=== PATIENT | male | born 1945 | race Caucasian/White ===

== ENCOUNTER 2020-01-29 00:49 | Inpatient (IN) ==
[2020-01-29] MEDS ORDERED: ONDANSETRON 4 MG/2 ML VIAL IV ONE (01:04)
[2020-01-29] MEDS ORDERED: DILTIAZEM 25 MG/5 ML VIAL IV ONE (01:04)
[2020-01-29] MEDS ORDERED: DILTIAZEM 125 MG in DEXTROSE 5% IN WATER 100 ML IV SCH (01:15)
[2020-01-29 01:57] LABS: Basophils # (Auto) 0.06 K/mcL (0.00-0.30); Basophils % (Auto) 0.5 % (0.0-2.0); Eosinophils # (Auto) 0.09 K/mcL (0.00-0.70); Eosinophils % (Auto) 0.8 % (0.0-7.0); Granulocytes % (Auto) 72.5 % (38.0-78.0); Hematocrit 46.8 % (40.1-51.0); Hemoglobin 15.3 g/dL (13.7-17.5); Lymphocytes # (Auto) 2.32 K/mcL (1.50-4.80); Lymphocytes % (Auto) 20.3 % (15.5-49.0); Mean Cell Volume 85.2 fL (80.0-100.0); Mean Corpuscular HGB Conc 32.7 g/dL (31.0-36.0); Mean Platelet Volume 10.4 fL (7.4-10.4); Monocytes # (Auto) 0.67 K/mcL (0.10-0.90); Monocytes % (Auto) 5.9 % (1.0-12.0); Platelet Count 307 K/mcL (140-440); RBC 5.49 M/mcL (4.63-6.08); Red Cell Distribution Width 13.1 % (11.5-14.5); WBC 11.5 K/mcL (4.50-11.00)
[2020-01-29] MEDS ORDERED: cefTRIAXone 1 GM VIAL IV ONE (02:07)
[2020-01-29] MEDS ORDERED: AZITHROMYCIN 500 MG in DEXTROSE 5% IN WATER 250 ML IV ONE (02:07)
[2020-01-29 02:17] LABS: ALT/SGPT 8 U/l (0-40); AST/SGOT 16 U/l (0-37); Albumin/Globulin Ratio 1.3 (1.0-2.3); Alkaline Phosphatase 111 U/L (39-117); Bilirubin,Total 1.8 mg/dL (0.0-1.0); Blood Urea Nitrogen 15 mg/dl (8-23); Calcium 8.8 mg/dl (8.6-10.4); Carbon Dioxide 22 mmol/L (22-30); Chloride 99 mmol/L (96-108); Globulin 3.2 gm/dL (2.2-3.7); Glomerular Filtration Rate 54; Glucose 160 mg/dL (70-105)
[2020-01-29 02:18] LABS: Prothrombin Time 14.1 sec (11.9-14.5)
[2020-01-29] MEDS: HYDROmorphone 0.5 MG/0.5 ML SYRINGE IV PRN ×2 (03:15→07:26)
--- NOTE | 2020-01-29 06:29 | Emergency Department Note ---
SOB HPI - General Chief Complaint: Shortness of Breath/Dyspnea Stated Complaint: SOB, abd pain, chest pain Time Seen by Provider: 01/29/20 01:00 Source: patient Mode of arrival: wheelchair Limitations: no limitations - History of Present Illness S patient has not felt well for a couple of days. He has some chest and abdominal discomfort and was not aware that his heart rate was fast. He does have a history of atrial fib. He currently is in atrial fib RVR with a rate of about 140. Said no nausea vomiting no diarrhea. No significant cough. - Related Data Home Medications Medication Instructions Recorded Confirmed Folic Acid 1 mg PO ONCE 02/05/16 02/05/16 Metoprolol Succinate [Toprol Xl] 25 mg PO QDAY 02/05/16 02/05/16 Omeprazole [PriLOSEC] 20 mg PO QDAY 02/05/16 02/05/16 Sennosides/Docusate Sodium [Senna 1 tab PO QDAY 02/05/16 02/05/16 Plus Tablet] Simvastatin [Zocor] 40 mg PO HS 02/05/16 02/05/16 Tamsulosin [Flomax] 0.4 mg PO QDAY 02/05/16 02/05/16 Trospium Chloride [Trospium 40 mg PO QDAY 02/05/16 02/05/16 Chloride ER] Warfarin [Coumadin] 2.5 mg PO WEEKLY 02/05/16 02/07/16 Warfarin [Coumadin] 5 mg PO WEEKLY 02/05/16 02/07/16 morphine SULFATE [Morphine Sulfate 120 mg PO BID 02/05/16 02/07/16 ER] oxyCODONE [OxyCONTIN] 10 mg PO PRN PRN 02/05/16 02/07/16 Allergies Allergy/AdvReac Type Severity Reaction Status Date / Time No Known Drug Allergies Allergy Unverified 01/29/20 00:52 Review of Systems All systems ED: reviewed and negative except as stated. Past Medical History - Past Medical History Medical history: Reports: atrial fibrillation, GERD, hyperlipidemia - Social History smoking status: Current every day smoker Physical Exam Limitations: no limitations General appearance: alert Head: atraumatic Eye: Present: normal appearance ENT: Present: normal exam Neck: Present: normal inspection Chest: Present: normal inspection Respiratory: Present: normal lung sounds bilaterally Cardiovascular: Present: tachycardia, irregular rhythm, normal heart sounds Abdominal: Present: soft. Absent: distention, tenderness Neurological: Present: alert Psychiatric: Present: normal affect Skin: Present: warm, dry Course Vital Signs Temperature 97.4 F 01/29/20 00:50 Pulse Rate 94 H 01/29/20 00:50 Respiratory Rate 28 H 01/29/20 00:50 Blood Pressure 146/107 01/29/20 00:50 Pulse Oximetry (%) 100 01/29/20 00:50 Temperature 97.4 F 01/29/20 00:50 Pulse Rate 61 01/29/20 05:48 Respiratory Rate 23 H 01/29/20 06:02 Blood Pressure 123/106 01/29/20 06:02 Pulse Oximetry (%) 97 01/29/20 06:02 Shortness of Breath/Dyspnea - [facility] Narrative Medical decision making narrative: Patient's checks x-ray shows a right lower lobe infiltrate. Lab work was not too remarkable. He was treated with diltiazem and was treated for pneumonia with Zithromax and Rocephin. Blood pressure came down under 100 and his diltiazem was stopped for a while was restarted with blood pressure came back up to 126 with a heart rate of 113. I did discuss case with Dr. Liriano and he will be admitted to the ICU. - Lab Data Lab results reviewed: Yes I reviewed the patient's lab results. Result diagrams: 01/29/20 01:05 01/29/20 01:05 Lab Results 01/29/20 01/29/20 01/29/20 Range/Units 01:05 01:05 01:05 WBC 11.5 H (4.50-11.00) K/mcL RBC 5.49 (4.63-6.08) M/mcL Hgb 15.3 (13.7-17.5) g/dL Hct 46.8 (40.1-51.0) % MCV 85.2 (80.0-100.0) fL MCH 27.9 (26.0-34.0) pg MCHC 32.7 (31.0-36.0) g/dL RDW 13.1 (11.5-14.5) % Plt Count 307 (140-440) K/mcL MPV 10.4 (7.4-10.4) fL Gran % 72.5 (38.0-78.0) % Lymph % (Auto) 20.3 (15.5-49.0) % [place] % (Auto) 5.9 (1.0-12.0) % Eos % (Auto) 0.8 (0.0-7.0) % Baso % (Auto) 0.5 (0.0-2.0) % Gran # 8.31 H (1.80-8.00) K/mcL Lymph # (Auto) 2.32 (1.50-4.80) K/mcL [place] # (Auto) 0.67 (0.10-0.90) K/mcL Eos # (Auto) 0.09 (0.00-0.70) K/mcL Baso # (Auto) 0.06 (0.00-0.30) K/mcL PT (11.9-14.5) sec INR (0.9-1.1) VBG Lactic Acid (0.5-2.0) mmol/L Sodium 138 (133-145) mmol/L Potassium 3.6 (3.3-5.1) mmol/L Chloride 99 (96-108) mmol/L Carbon Dioxide 22 (22-30) mmol/L Anion Gap 17.0 H (8-16) BUN 15 (8-23) mg/dl Creatinine 1.3 H (0.7-1.2) mg/dl GFR Calculation 54 Glucose 160 H (70-105) mg/dL Calcium 8.8 (8.6-10.4) mg/dl Total Bilirubin 1.8 H (0.0-1.0) mg/dL AST 16 (0-37) U/l ALT 8 (0-40) U/l Alkaline Phosphatase 111 (39-117) U/L Troponin T < 0.01 (0-0.03) ng/ml NT-Pro-B Natriuret Pep 6639.0 H (0-125) pg/ml Total Protein 7.2 (5.9-8.4) gm/dL Albumin 4.0 (3.2-5.2) gm/dL Globulin 3.2 (2.2-3.7) gm/dL Albumin/Globulin Ratio 1.3 (1.0-2.3) Lipase 10 (7-60) U/L 01/29/20 01/29/20 Range/Units 01:05 01:45 WBC (4.50-11.00) K/mcL RBC (4.63-6.08) M/mcL Hgb (13.7-17.5) g/dL Hct (40.1-51.0) % MCV (80.0-100.0) fL MCH (26.0-34.0) pg MCHC (31.0-36.0) g/dL RDW (11.5-14.5) % Plt Count (140-440) K/mcL MPV (7.4-10.4) fL Gran % (38.0-78.0) % Lymph % (Auto) (15.5-49.0) % [place] % (Auto) (1.0-12.0) % Eos % (Auto) (0.0-7.0) % Baso % (Auto) (0.0-2.0) % Gran # (1.80-8.00) K/mcL Lymph # (Auto) (1.50-4.80) K/mcL [place] # (Auto) (0.10-0.90) K/mcL Eos # (Auto) (0.00-0.70) K/mcL Baso # (Auto) (0.00-0.30) K/mcL PT 14.1 (11.9-14.5) sec INR 1.0 (0.9-1.1) VBG Lactic Acid 2.8 H (0.5-2.0) mmol/L Sodium (133-145) mmol/L Potassium (3.3-5.1) mmol/L Chloride (96-108) mmol/L Carbon Dioxide (22-30) mmol/L Anion Gap (8-16) BUN (8-23) mg/dl Creatinine (0.7-1.2) mg/dl GFR Calculation Glucose (70-105) mg/dL Calcium (8.6-10.4) mg/dl Total Bilirubin (0.0-1.0) mg/dL AST (0-37) U/l ALT (0-40) U/l Alkaline Phosphatase (39-117) U/L Troponin T (0-0.03) ng/ml NT-Pro-B Natriuret Pep (0-125) pg/ml Total Protein (5.9-8.4) gm/dL Albumin (3.2-5.2) gm/dL Globulin (2.2-3.7) gm/dL Albumin/Globulin Ratio (1.0-2.3) Lipase (7-60) U/L - Radiology Data Radiology results reviewed: Yes I reviewed the patient's radiology results. Disposition Pt seen by DIRECTOR OF CONTENT MARKETING/PA only: No Clinical Impression: Atrial fibrillation with RVR, Community acquired pneumonia, Congestive heart failure Disposition: Xfer As Inpt ([facility]) Condition: Good Time of Disposition: 06:31
--- NOTE | 2020-01-29 06:57 | Internal Med History&Physical ---
Medical - H&P: HPI Patient information: Note initiated : 01/29/20 at 6:54 am Service Date, if different from initiated Date: [] Patient: Roman Vega 74 y/o M admitted on for SOB, abd pain, chest pain. Chief Complaint: [] Chief complaint: Shortness of breath, Weakness and not feeling well History of present illness: Mr. Vega is a 74 year old M with a known history of atrial fibrillation on anticoagulation, chronic pain who presents to the ER with 5-day onset of worsening shortness of breath/effort intolerance and poor functionality. He has associated abdominal discomfort. Patient endorses to sick contacts being his friend who lives in the same property trailer. He however denies shaking chills, headache, photophobia. Endorses to clear productive sputum. Denies rash, arthralgia myalgia. Initial work-up in the ER was consistent with A. fib RVR and bilateral infi ltrates/right-sided effusion. Patient started on diltiazem drip with rate improving from over 150s to 120s. Patient was started on antibiotic coverage following blood cultures and hospital service was consulted At the time evaluation patient is alert but in moderate distress requiring 5 L oxygen. Rate currently on 120. Patient endorses to history as above. He however occasionally mentioned was not able to provide a detailed history. He stopped taking his prior medications for a long time. He appears fatigued and lethargic. COVID test pending. Review of systems A 10 point review system was performed and is negative except for ones discussed above Medical - H&P: PMH Medical history: Atrial fibrillation Anticoagulation on rivaroxaban Hyper lipidemia GERD Chronic pain BPH Cognitive dysfunction Social history: Lives in [place] with Active smoker over [id number] Drinks beer frequently Smoking status: Current every day smoker Medical - H&P: Meds Home Medications Medication Instructions Recorded Confirmed Type Atorvastatin [Lipitor] 80 mg PO HS 01/29/20 01/29/20 History Clopidogrel Bisulfate [Plavix] 75 mg PO DAILY 01/29/20 01/29/20 History Cyclobenzaprine [Flexeril] 10 mg PO TID PRN 01/29/20 01/29/20 History Lisinopril [Zestril] 2.5 mg PO DAILY 01/29/20 01/29/20 History Metoprolol Succinate [Toprol Xl] 100 mg PO DAILY 01/29/20 01/29/20 History Rivaroxaban [Xarelto] 20 mg PO HS 01/29/20 01/29/20 History Nitroglycerin [Nitrostat] 0.4 mg SL Q5M PRN MDD 3 01/30/20 01/30/20 History Omeprazole 20 mg PO ACB 01/30/20 01/30/20 History Tamsulosin HCl 0.4 mg PO DAILY 01/30/20 01/30/20 History Allergies Allergy/AdvReac Type Severity Reaction Status Date / Time No Known Drug Allergies Allergy Unverified 01/29/20 00:52 Medical - H&P: Exam - Constitutional Vitals: Temp Pulse Resp BP Pulse Ox 97.4 F 61 24 H 109/91 93 01/29/20 00:50 01/29/20 05:48 01/29/20 06:47 01/29/20 06:47 01/29/20 06:32 General appearance: obese Exam: Minimally confused Head normocephalic Oral cavity dry No ear nose discharge Neck lymphadenopathy Irregular rhythm Eye movement symmetrical Oxygen mask 5 L Diminished breath sounds with late inspiratory crackles bilateral posterior chest Abdomen soft nontender Lower extremity no cyanosis clubbing no joint swelling Skin no suspicious lesion Psych anxious Neuro nonfocal Medical - H&P: Reslt - Labs CBC & Chem 7: 01/30/20 04:00 01/30/20 04:00 Labs: Short CBC 01/29/20 Range/Units 01:05 WBC 11.5 H (4.50-11.00) K/mcL Hgb 15.3 (13.7-17.5) g/dL Hct 46.8 (40.1-51.0) % Plt Count 307 (140-440) K/mcL [facility] 01/29/20 01:05 Sodium 138 Potassium 3.6 Chloride 99 Carbon Dioxide 22 BUN 15 Creatinine 1.3 H Glucose 160 H Calcium 8.8 Cardiac Enzymes 01/29/20 Range/Units 01:05 Troponin T < 0.01 (0-0.03) ng/ml Liver Function 01/29/20 Range/Units 01:05 Total Bilirubin 1.8 H (0.0-1.0) mg/dL AST 16 (0-37) U/l ALT 8 (0-40) U/l Alkaline Phosphatase 111 (39-117) U/L Albumin 4.0 (3.2-5.2) gm/dL Medical - H&P: A/P (1) Atrial fibrillation with RVR Current visit: Yes Status: Acute * Atrial fibrillation with rapid ventricular rate-exacerbated by pneumonia/hypoxic respiratory failure. Continue rate control measures with CCB/digoxin. Await echocardiogram. * Right lower lobe pneumonia-broad antibiotic coverage. Check COVID 19. Sputum cultures. Pulmonary toilet and aspiration precaution * Acute hypoxic respiratory failure on 5 L oxygen. Check ABG/serial chest imaging. CT chest in 24 hours. If evidence of effusion consider thoracentesis * Mild cognitive dysfunction * History of hypertension lisinopril, exact home medication list is being obtained * History of BPH continue tamsulosin * Hyperlipidemia continue statin * AntiCoagulation on Coumadin * Chronic pain continue oxycodone/morphine home dose Plan * Inpatient ICU admission * Noninvasive ventilation if indicated * Aggressive rate control measures including CCB/digoxin IV load * Coumadin dosing based on INR * Broad antibiotic coverage * Pre-existing medical condition management as above
[2020-01-29] MEDS ORDERED: MAGNESIUM SULFATE 2 GM/50 ML BAG IV PRN (08:34)
[2020-01-29] MEDS ORDERED: POTASSIUM CHLORIDE 20 MEQ PACKET PO PRN (08:34)
[2020-01-29] MEDS ORDERED: hydrALAZINE 20 MG/ML VIAL IV PRN (08:34)
[2020-01-29] MEDS ORDERED: ACETAMINOPHEN 325 MG TABLET PO PRN (08:34)
[2020-01-29] MEDS ORDERED: METOPROLOL TARTRATE 5 MG/5 ML VIAL IV PRN (08:34)
[2020-01-29] MEDS ORDERED: ONDANSETRON 4 MG ODT TABLET SL PRN (08:34)
[2020-01-29] MEDS ORDERED: ONDANSETRON 4 MG/2 ML VIAL IV PRN (08:34)
[2020-01-29] MEDS ORDERED: POLYETHYLENE GLYCOL 3350 17 GM PACKET PO PRN (08:34)
[2020-01-29] MEDS ORDERED: BISACODYL 10 MG SUPP.RECT PR PRN (08:34)
--- NOTE | 2020-01-29 08:50 | XRay Report ---
CLINICAL INFORMATION: sob COMPARISON: 07/07/2011 FINDINGS: The heart is mildly enlarged - increased. Mediastinum and pulmonary vessels are normal. Moderate vague patchy infiltrate in the right base with smaller patchy infiltrate in the left base have developed. There is a small right pleural effusion. IMPRESSION: Moderate patchy right and small patchy left basilar infiltrates and small right pleural effusion. Consider aspiration Mild cardiomegaly Interpreted and Authenticated by: Niranjan Hilario 01/29/20
[2020-01-29] MEDS ORDERED: IPRATROPIUM/ALBUTEROL SULFATE 1 PUFF INHALER INH SCH (09:00)
[2020-01-29] MEDS ORDERED: DIGOXIN 500 MCG/2 ML AMPUL IV ONE (09:16)
[2020-01-29] MEDS: LEVOFLOXACIN 750 MG/150 ML BAG IV SCH (09:45)
[2020-01-29] MEDS: 0.9 % SODIUM CHLORIDE 10 ML SYRINGE IV SCH ×4 (09:45→20:33)
[2020-01-29] MEDS: FUROSEMIDE 40 MG/4 ML VIAL IV SCH ×2 (10:29→17:00)
[2020-01-29] MEDS: HEPARIN 5,000 UNIT/ML VIAL SQ SCH ×2 (10:29→20:31)
[2020-01-29] MEDS: DOCUSATE SODIUM 100 MG CAPSULE PO SCH ×2 (10:29→20:32)
[2020-01-29] MEDS: MULTIVIT,THER IRON,CA,FA & MIN 1 TABLET PO SCH (10:30)
[2020-01-29] MEDS: TIOTROPIUM BROMIDE 18 MCG INHALANT INH SCH (13:37)
[2020-01-29] MEDS ORDERED: WARFARIN 2.5 MG TABLET PO ONE (14:00)
[2020-01-29] MEDS: DILTIAZEM 125 MG in 0.9 % SODIUM CHLORIDE 100 ML IV SCH (14:19)
[2020-01-29] MEDS ORDERED: cefTRIAXone 2 GM VIAL ONE (17:22)
[2020-01-29] MEDS: cefTRIAXone 2 GM in DEXTROSE 5% IN WATER 50 ML IV SCH (17:46)
[2020-01-29] MEDS: SENNOSIDES/DOCUSATE SODIUM 1 TAB TABLET PO SCH (20:32)
[2020-01-29] MEDS ORDERED: MELATONIN 3 MG TABLET PO PRN (21:00)
[2020-01-30] MEDS: DILTIAZEM 125 MG in 0.9 % SODIUM CHLORIDE 100 ML IV SCH ×2 (01:42→15:36)
[2020-01-30] MEDS: 0.9 % SODIUM CHLORIDE 10 ML SYRINGE IV SCH ×7 (04:07→20:43)
[2020-01-30 05:18] LABS: Hematocrit 41.3 % (40.1-51.0); Hemoglobin 13.6 g/dL (13.7-17.5); Mean Cell Volume 83.6 fL (80.0-100.0); Mean Corpuscular HGB Conc 32.9 g/dL (31.0-36.0); Mean Platelet Volume 10.6 fL (7.4-10.4); Platelet Count 231 K/mcL (140-440); RBC 4.94 M/mcL (4.63-6.08); Red Cell Distribution Width 13.1 % (11.5-14.5); WBC 11.2 K/mcL (4.50-11.00)
[2020-01-30 05:34] LABS: INR 1.3 (0.9-1.1); Prothrombin Time 16.3 sec (11.9-14.5)
[2020-01-30] MEDS: 0.9 % SODIUM CHLORIDE 250 ML IV SCH ×2 (05:34→18:33)
[2020-01-30 05:35] LABS: ALT/SGPT 19 U/l (0-40); AST/SGOT 29 U/l (0-37); Albumin 3.6 gm/dL (3.2-5.2); Albumin/Globulin Ratio 1.4 (1.0-2.3); Alkaline Phosphatase 94 U/L (39-117); Bilirubin,Direct 0.2 mg/dL (0.0-0.3); Bilirubin,Total 0.8 mg/dL (0.0-1.0); Blood Urea Nitrogen 22 mg/dl (8-23); Calcium 8.1 mg/dl (8.6-10.4); Carbon Dioxide 22 mmol/L (22-30); Chloride 97 mmol/L (96-108); Globulin 2.6 gm/dL (2.2-3.7); Glomerular Filtration Rate 46; Glucose 110 mg/dL (70-105); Lactate Dehydrogenase 211 U/L (94-250); Phosphorous 3.3 mg/dL (2.7-4.5); Triglycerides 71 mg/dl (<150); Uric Acid 9.4 mg/dL (2.5-8.0)
[2020-01-30 05:49] LABS: Band Neutrophils % 1 % (0-10); Basophils % (Manual) 1 % (0-2); Eosinophils % (Manual) 1 % (0-7); Lymphocytes % 31 % (15-49); Monocytes % (Manual) 4 % (1-12); Platelet Estimate NORMAL (NORMAL); RBC Morphology NORMAL (NORMAL); Reactive Lymphocytes 1 % (0-2); Segmented Neutrophils % 61 % (38-78)
[2020-01-30] MEDS: FUROSEMIDE 40 MG/4 ML VIAL IV SCH ×2 (07:20→15:56)
[2020-01-30] MEDS: DOCUSATE SODIUM 100 MG CAPSULE PO SCH ×2 (08:32→20:43)
[2020-01-30] MEDS: LEVOFLOXACIN 750 MG/150 ML BAG IV SCH (08:32)
[2020-01-30] MEDS: MULTIVIT,THER IRON,CA,FA & MIN 1 TABLET PO SCH (08:32)
[2020-01-30] MEDS: HEPARIN 5,000 UNIT/ML VIAL SQ SCH ×2 (08:32→20:43)
[2020-01-30] MEDS: TIOTROPIUM BROMIDE 18 MCG INHALANT INH SCH (09:04)
[2020-01-30] MEDS ORDERED: NITROGLYCERIN 0.4 MG TAB.SUBL SL PRN (10:03)
--- NOTE | 2020-01-30 10:10 | Internal Med Progress Note ---
Medical - PN: Subj Patient information: Note initiated : 01/30/20 at 10:06 am Service Date, if different from initiated Date: [] Patient: Roman Vega 74 y/o M admitted on 01/29/20 for SOB, abd pain, chest pain. Chief Complaint: [] Interval history: Mr. Vega is a 74 year old M with a known history of atrial fibrillation on anticoagulation, chronic pain who presents to the ER with 5-day onset of worseni ng shortness of breath/effort intolerance and poor functionality. He has associated abdominal discomfort. Patient endorses to sick contacts being his friend who lives in the same property trailer. He however denies shaking chills, headache, photophobia. Endorses to clear productive sputum. Denies rash, arthralgia myalgia. Initial work-up in the ER was consistent with A. fib RVR and bilateral infiltrates/right-sided effusion. Patient started on diltiazem drip with rate improving from over 150s to 120s. Patient was started on antibiotic coverage following blood cultures and hospital service was consulted At the time evaluation patient is alert but in moderate distress requiring 5 L oxygen. Rate currently on 120. Patient endorses to history as above. He however occasionally mentioned was not able to provide a detailed history. He stopped taking his prior medications for a long time. He appears fatigued and lethargic. COVID test pending. 01/29-patient currently on 5 years oxygen. Rate controlled. Home meds list obtained. Patient has stopped taking his medication since a long time. Will restart beta-brenna/GRETTA inhibitor. Echo pending. CT chest today. COVID-[address] pending. - Constitutional Vitals: Vital Signs Temp Pulse Resp BP Pulse Ox 98.3 F 48 L 24 H 112/95 93 01/30/20 00:01 01/29/20 08:02 01/30/20 07:06 01/30/20 07:06 01/30/20 07:06 Period Temp Pulse Resp BP Sys/Joel Pulse Ox Last 24 Hr 96.8 F-98.3 F 17-27 92-142/47-120 88-97 Intake and Output 01/29/20 01/30/20 01/30/20 21:59 05:59 13:59 Intake Total 69 319 180 Output Total 125 625 450 Balance -56 -306 -270 Weight 213 lb 6.4 oz Intake & Output: Intake & Output 01/29/20 01/30/20 01/30/20 21:59 05:59 13:59 Intake Total 69 319 180 Output Total 125 625 450 Balance -56 306 -314 Weight 213 lb 6.4 oz Intake: IV 69 19 Cardizem 125 mg In Sodium 69 19 Chloride 0.9% 100 ml @ 5 MG/HR 5 mls/hr IV Q12H TANMAY Rx#: [id number] Oral 300 180 Output: Void Amount 125 625 450 Other: Urine Appearance Clear Clear Clear Urine Color [place] Bright Yellow Urine Odor Normal Normal General appearance: no acute distress Exam: Alert Nonlabored breathing Telemetry A. fib rate controlled No lymphedema Medical - PN: Obj Da - Labs CBC & Chem 7: 01/30/20 04:00 01/30/20 04:00 Labs: Abnormal Lab Results 01/30/20 01/30/20 01/30/20 04:00 04:00 04:00 WBC 11.2 H Hgb 13.6 L MPV 10.6 H Gran # PT 16.3 H INR 1.3 H VBG Lactic Acid Anion Gap Creatinine 1.5 H Glucose 110 H Uric Acid 9.4 H Calcium 8.1 L Total Bilirubin NT-Pro-B Natriuret Pep 01/29/20 01/29/20 01/29/20 01:45 01:05 01:05 WBC 11.5 H Hgb MPV Gran # 8.31 H PT INR VBG Lactic Acid 2.8 H Anion Gap 17.0 H Creatinine 1.3 H Glucose 160 H Uric Acid Calcium Total Bilirubin 1.8 H NT-Pro-B Natriuret Pep 6639.0 H Meds: Medications Acetaminophen (Tylenol) 650 mg PO Q4-6HP PRN; Protocol PRN Reason: Per Pain Protocol/Fever > 101 Last Admin: 01/30/20 07:56 Dose: 650 mg Documented by: Albuterol Sulfate (Ventolin) 2 puff INH Q4HP PRN PRN Reason: Shortness Of Breath Atorvastatin Calcium (Lipitor) 80 mg PO HS TNAMAY Bisacodyl (Dulcolax) 10 mg ND Q2-3DAYS PRN PRN Reason: Constipation Clopidogrel Bisulfate (Plavix) 75 mg PO DAILY TANMYA Cyclobenzaprine HCl (Flexeril) 10 mg PO TIDP PRN PRN Reason: Pain Docusate Sodium (Colace) 100 mg PO BID [facility] Last Admin: 01/30/20 08:32 Dose: 100 mg Documented by: Furosemide (Lasix) 40 mg IV BIDD [facility] Last Admin: 01/30/20 07:20 Dose: 40 mg Documented by: Heparin Sodium (Porcine) (Heparin) 5,000 unit SQ Q12 [facility] Last Admin: 01/30/20 08:32 Dose: 5,000 unit Documented by: Hydralazine HCl (Apresoline) 10 mg IV Q4-6HP PRN PRN Reason: Hypertension Magnesium Sulfate (Magnesium Sulfate) 2 gm in 50 mls @ 50 mls/hr IV UD PRN PRN Reason: MG = or < 1.7 Ceftriaxone Sodium 2 gm/ (Dextrose) 50 mls @ 100 mls/hr IV DAILY [facility]; Protocol Last Admin: 01/29/20 17:46 Dose: Not Given Documented by: Levofloxacin (Levaquin) 750 mg in 150 mls @ 100 mls/hr IV DAILY [facility]; Protocol Last Admin: 01/30/20 08:32 Dose: 100 mls/hr Documented by: Diltiazem HCl 125 mg/ Sodium (Chloride) 125 mls @ 5 mls/hr IV Q12H [facility]; Protocol Last Titration: 01/30/20 05:56 Dose: 5 mg/hr, 5 mls/hr Documented by: Sodium Chloride (Sodium Chloride 0.9%) 250 mls @ 20 mls/hr IV .[id number] [facility] Last Admin: 01/30/20 05:34 Dose: 10 mls/hr Documented by: Iron Carb/Multivit/Scout Leaser/Folic Acid (Multivitamin W/Minerals) 1 tab PO DAILY [facility] Last Admin: 01/30/20 08:32 Dose: 1 tab Documented by: Lisinopril (Zestril) 2.5 mg PO DAILY [facility] Melatonin (Melatonin 3mg Tablet) 3 mg PO HSP PRN PRN Reason: Insomnia Metoprolol Tartrate (Lopressor) 5 mg IV Q5M PRN PRN Reason: Heart Rate > 140 bpm Nitroglycerin (Nitrostat) 0.4 mg SL Q5M PRN PRN Reason: Chest Pain Non-Formulary Medication (Metoprolol Succinate [Toprol Xl]) 100 mg PO DAILY [facility] Omeprazole (Prilosec) 20 mg PO ACB [facility] Ondansetron HCl (Zofran Odt) 4 mg SL Q4-6HP PRN; Protocol PRN Reason: Nausea And Vomiting Ondansetron HCl (Zofran) 4 mg IV Q4-6HP PRN; Protocol PRN Reason: Nausea And Vomiting Polyethylene Glycol (Miralax) 17 gm PO DAILYP PRN PRN Reason: Constipation Potassium Chloride (Klor-Con) 40 meq PO DAILYP PRN PRN Reason: K+ < 3.5 Senna/Docusate Sodium (Senna Plus Tablet) 1 tab PO HS [facility] Last Admin: 01/29/20 20:32 Dose: Not Given Documented by: Sodium Chloride (Saline Flush) 10 ml IV Q8 [facility] Last Admin: 01/30/20 08:34 Dose: 10 ml Documented by: Tamsulosin HCl (Flomax) 0.4 mg PO DAILY [facility] Tiotropium [place] (Spiriva) 18 mcg INH DAILY [facility] Last Admin: 01/30/20 09:04 Dose: 1 puff Documented by: Medical - PN: A/P - Time Spent With Patient Total time spent is greater than 50% in coordination of care (as documented) at patient's floor/unit and/or counseling patient: 25 - 35 minutes (1) Atrial fibrillation with RVR Status: Acute Assessment and plan: * Atrial fibrillation with rapid ventricular rate-exacerbated by pneumonia /hypoxic respiratory failure. Ongoing rate control measures on beta- brenna/CCB. Await echocardiogram. * Right lower lobe pneumonia-continue antibiotic coverage. Await COVID 19. Blood cultures. Continue pulmonary toilet and aspiration precaution * Acute hypoxic respiratory failure on 5-[address] chest today. If evidence of pleural effusion consider thoracentesis * Mild cognitive dysfunction * History of CAD on GRETTA inhibitor/beta-brenna/nitro//Plavix/statin * History of hypertension lisinopril, beta-brenna * History of BPH continue tamsulosin * Hyperlipidemia continue statin * AntiCoagulation on Coumadin * GERD on PPI * Chronic pain continue oxycodone/morphine home dose Plan * Antibiotic coverage * CT chest * Thoracentesis for pleural effusion * Start beta-brenna/home medications * Broad antibiotic coverage * Pre-existing medical condition management as above * PT OT nutrition support * Discharge planning per case management Current Visit: Yes Medical - PN: Qual - Stroke Symptom Onset Unknown: No - VTE Deep Vein Thrombosis/Pulmonary Embolism Present on Admission: No
[2020-01-30] MEDS: cefTRIAXone 2 GM in DEXTROSE 5% IN WATER 50 ML IV SCH (10:25)
[2020-01-30] MEDS ORDERED: TAMSULOSIN 0.4 MG CAPSULE PO ONE (10:58)
[2020-01-30] MEDS ORDERED: CLOPIDOGREL 75 MG TABLET PO ONE (10:59)
[2020-01-30] MEDS ORDERED: METOPROLOL SUCCINATE 50 MG TAB.XL.24H PO ONE (11:00)
[2020-01-30] MEDS: predniSONE 20 MG TABLET PO SCH (12:13)
--- NOTE | 2020-01-30 12:25 | Cat Scan Report ---
CLINICAL INFORMATION: Chest pain COMPARISON: None TECHNIQUE: 0.625 mm axial slices were obtained from the lung apices through the bases without intravenous contrast. 2.5 mm Sagittal, coronal and axial reformatted images were processed and reviewed at bone, lung and soft tissue windows. 7 mm axial MIP images were also reconstructed to optimize pulmonary nodule detection.The exam was performed using radiation dose optimization techniques including, but not limited to, automated exposure control, adjustment of the mA and/or kV according to patient size and use of iterative reconstruction technique. FINDINGS: The mediastinal windows show the heart is normal in size and moderate calcific plaque scattered throughout the coronary arteries. The noncontrasted thoracic and pulmonary arteries are normal in diameter. There are multiple moderately enlarged mediastinal lymph nodes in the right peritracheal, azygous, right hilum and subcarinal region. They range up to 25 mm and are likely benign reactive lymph nodes. Esophagus is grossly normal. The thyroid is unremarkable. Pulmonary parenchymal windows show moderate right and small left pleural effusions. On the right, there is no pleural fluid scattered within the minor and major fissures. Mild subsegmental atelectasis in both posterior dependent lower lobes. No definite infiltrates. Moderate underlying moderate centrilobular emphysema changes appreciated. A few well-circumscribed solid nodule are noted: 6.5 mm in the left lung apex, image 30, 4 mm right middle lobe, image 64, and 4.9 mm in the superior segment right lower lobe on image 66,. They're likely inflammatory. Bone windows show no osseous abnormality. Spinal stimulator electrodes seen in the posterior epidural space at T6 with wires descending in the posterior epidural space exiting at T12. No complication. Images through the superior abdomen show possible tiny stones in the gallbladder. The also a 3 mm nonobstructing stone superior pole right kidney. IMPRESSION: 1. Moderate centrilobular emphysema. 2. Moderate right and small left pleural effusions with a small amount of loculated fluid in the right major and minor fissures. 3. Subsegmental atelectasis both posterior lower lobes and scattered scarring. No zay infiltrates. 4. Moderate adenopathy in the right mediastinum and hilum as almost certainly benign reactive lymph nodes. 5. Probable tiny stones in the gallbladder. 6. 3 mm nonobstructing stone superior calyx right kidney. Interpreted and Authenticated by: Niranjan Hilario 01/30/20
[2020-01-30] MEDS: CYCLOBENZAPRINE 10 MG TABLET PO PRN (12:44)
[2020-01-30] MEDS: ALBUTEROL SULFATE 200 PUFF INHALER INH PRN (14:59)
[2020-01-30] MEDS: ATORVASTATIN 40 MG TABLET PO SCH (20:43)
[2020-01-30] MEDS: SENNOSIDES/DOCUSATE SODIUM 1 TAB TABLET PO SCH (20:43)
[2020-01-31] MEDS: DILTIAZEM 125 MG in 0.9 % SODIUM CHLORIDE 100 ML IV SCH (02:03)
[2020-01-31] MEDS: 0.9 % SODIUM CHLORIDE 250 ML IV SCH (04:42)
[2020-01-31] MEDS: 0.9 % SODIUM CHLORIDE 10 ML SYRINGE IV SCH ×4 (05:10→22:04)
[2020-01-31 06:01] LABS: Hematocrit 42.2 % (40.1-51.0); Hemoglobin 13.7 g/dL (13.7-17.5); Mean Cell Volume 83.6 fL (80.0-100.0); Mean Corpuscular HGB Conc 32.5 g/dL (31.0-36.0); Mean Platelet Volume 10.9 fL (7.4-10.4); Platelet Count 221 K/mcL (140-440); RBC 5.05 M/mcL (4.63-6.08); WBC 11.3 K/mcL (4.50-11.00)
[2020-01-31] MEDS: ALBUTEROL SULFATE 200 PUFF INHALER INH PRN (06:14)
[2020-01-31 06:20] LABS: ALT/SGPT 22 U/l (0-40); AST/SGOT 24 U/l (0-37); Albumin 3.6 gm/dL (3.2-5.2); Albumin/Globulin Ratio 1.2 (1.0-2.3); Alkaline Phosphatase 102 U/L (39-117); Bilirubin,Total 0.7 mg/dL (0.0-1.0); Blood Urea Nitrogen 26 mg/dl (8-23); Carbon Dioxide 26 mmol/L (22-30); Chloride 97 mmol/L (96-108); Globulin 2.9 gm/dL (2.2-3.7); Glomerular Filtration Rate 54; Glucose 155 mg/dL (70-105); Lactate Dehydrogenase 223 U/L (94-250); Phosphorous 3.5 mg/dL (2.7-4.5); Triglycerides 64 mg/dl (<150); Uric Acid 10.1 mg/dL (2.5-8.0)
[2020-01-31 06:32] LABS: INR 1.1 (0.9-1.1); Prothrombin Time 14.7 sec (11.9-14.5)
[2020-01-31 06:41] LABS: Bilirubin,Direct < 0.2 mg/dL (0.0-0.3)
--- NOTE | 2020-01-31 07:15 | XRay Report ---
CLINICAL INFORMATION: Follow up basilar infiltrates. COMPARISON: 01/29/2020. FINDINGS: Cardiomegaly is unchanged. Mediastinum and pulmonary vessels are normal. Bibasilar infiltrates are likely resolved with only minimal residual. Mild elevation right diaphragm seen as before. Small bilateral pleural effusions also decreased. IMPRESSION: Near complete resolution in bibasilar infiltrates and effusions Interpreted and Authenticated by: Niranjan Hilario 01/31/20
[2020-01-31] MEDS ORDERED: OMEPRAZOLE 20 MG CAPSULE PO SCH (07:30)
[2020-01-31 07:56] LABS: Lymphocytes % 15 % (15-49); Monocytes % (Manual) 1 % (1-12); Platelet Estimate NORMAL (NORMAL); RBC Morphology NORMAL (NORMAL); Segmented Neutrophils % 84 % (38-78)
[2020-01-31] MEDS: LEVOFLOXACIN 750 MG/150 ML BAG IV SCH (08:59)
[2020-01-31] MEDS: cefTRIAXone 2 GM in DEXTROSE 5% IN WATER 50 ML IV SCH (08:59)
[2020-01-31] MEDS ORDERED: METOPROLOL SUCCINATE 50 MG TAB.XL.24H PO SCH (09:00)
[2020-01-31] MEDS ORDERED: LISINOPRIL 5 MG TABLET PO SCH (09:00)
[2020-01-31] MEDS ORDERED: TAMSULOSIN 0.4 MG CAPSULE PO SCH (09:00)
[2020-01-31] MEDS ORDERED: CLOPIDOGREL 75 MG TABLET PO SCH (09:00)
[2020-01-31] MEDS ORDERED: DILTIAZEM 125 MG in 0.9 % SODIUM CHLORIDE 100 ML IV PRN (09:30)
[2020-01-31] MEDS: HEPARIN 5,000 UNIT/ML VIAL SQ SCH ×2 (09:50→20:22)
[2020-01-31] MEDS: predniSONE 20 MG TABLET PO SCH (09:50)
[2020-01-31] MEDS: DOCUSATE SODIUM 100 MG CAPSULE PO SCH ×2 (09:50→20:23)
[2020-01-31] MEDS: MULTIVIT,THER IRON,CA,FA & MIN 1 TABLET PO SCH (09:51)
[2020-01-31] MEDS: TIOTROPIUM BROMIDE 18 MCG INHALANT INH SCH (09:52)
--- NOTE | 2020-01-31 10:12 | Internal Med Progress Note ---
Medical - PN: Subj Patient information: Note initiated : 01/31/20 at 10:05 am Service Date, if different from initiated Date: [] Patient: Roman Vega 74 y/o M admitted on 01/29/20 for SOB, abd pain, chest pain. Chief Complaint: [] Interval history: Mr. Vega is a 74 year old M with a known history of atrial fibrillation on anticoagulation, chronic pain who presents to the ER with 5-day onset of worseni ng shortness of breath/effort intolerance and poor functionality. He has associated abdominal discomfort. Patient endorses to sick contacts being his friend who lives in the same property trailer. He however denies shaking chills, headache, photophobia. Endorses to clear productive sputum. Denies rash, arthralgia myalgia. Initial work-up in the ER was consistent with A. fib RVR and bilateral infiltrates/right-sided effusion. Patient started on diltiazem drip with rate improving from over 150s to 120s. Patient was started on antibiotic coverage following blood cultures and hospital service was consulted At the time evaluation patient is alert but in moderate distress requiring 5 L oxygen. Rate currently on 120. Patient endorses to history as above. He however occasionally mentioned was not able to provide a detailed history. He stopped taking his prior medications for a long time. He appears fatigued and lethargic. COVID test pending. 01/29-patient currently on 5 years oxygen. Rate controlled. Home meds list obtained. Patient has stopped taking his medication since a long time. Will restart beta-brenna/GRETTA inhibitor. Echo pending. CT chest today. COVID-[address] pending. 01/30-EF 35%. On 6 L oxygen. Severe decompensation. Aggressive diuresis with 3 times a day Lasix. Significant pleural effusion on chest CT. Alert oriented. No overnight fever chills. Continuing antibiotic coverage. Await thoracentesis. Rate controlled on beta-brenna. COVID-19 negative. Persistent cognitive dysfunction. Per case management patient has been living at home and has not letter in his room for the last 5 years. discovered that the room was latent with field/garbage and dog feces. Also patient has demonstrated gradual cognitive decline. He would likely benefit from transfer to assisted living on discharge. Case management aware and coordinating. - Constitutional Vitals: Vital Signs Temp Pulse Resp BP Pulse Ox 96.5 F L 48 L 16 104/85 97 01/31/20 07:27 01/29/20 08:02 01/31/20 07:27 01/31/20 07:27 01/31/20 07:27 Period Temp Pulse Resp BP Sys/Joel Pulse Ox Last 24 Hr 96.5 F-98.7 F 13-30 96-147/58-94 85-99 Intake and Output 01/30/20 01/31/20 01/31/20 21:59 05:59 13:59 Intake Total 121 100 Output Total 775 400 375 Balance -654 -400 -275 Weight 211 lb 14.4 oz Intake & Output: Intake & Output 01/30/20 01/31/20 01/31/20 21:59 05:59 13:59 Intake Total 121 100 Output Total 775 400 375 Balance -654 -400 -275 Weight 211 lb 14.4 oz Intake: IV 121 100 Sodium Chloride 0.9% 250 ml @ 94 20 mls/hr IV .[id number] [facility] Rx#: [id number] Cardizem 125 mg In Sodium 27 Chloride 0.9% 100 ml @ 5 MG/HR 5 mls/hr IV Q12H [facility] Rx#: [id number] Rocephin 2 gm In Dextrose 5% in 50 Water 50 ml @ 100 mls/hr IV DAILY [facility] Rx#:[id number] Output: Void Amount 775 400 375 Other: Meal Dinner Percent of Meal Consumed 75% Urine Appearance Clear Clear Clear Urine Color Bright Yellow Bright Yellow Light [place] Urine Odor Normal Normal Normal General appearance: no acute distress Exam: No anxiety but appears withdrawn on 6 L oxygen Nonlabored breathing Atrial fibrillation on telemetry Medical - PN: Obj Da - Labs CBC & Chem 7: 01/31/20 04:04 01/31/20 04:04 Labs: Abnormal Lab Results 01/31/20 01/31/20 01/31/20 04:04 04:04 04:04 WBC 11.3 H Hgb MPV 10.9 H Gran # Seg Neutrophils % 84 H PT 14.7 H INR VBG Lactic Acid Anion Gap BUN 26 H Creatinine 1.3 H Glucose 155 H Uric Acid 10.1 H Calcium Total Bilirubin NT-Pro-B Natriuret Pep 01/30/20 01/30/20 01/30/20 04:00 04:00 04:00 WBC 11.2 H Hgb 13.6 L MPV 10.6 H Gran # Seg Neutrophils % PT 16.3 H INR 1.3 H VBG Lactic Acid Anion Gap BUN Creatinine 1.5 H Glucose 110 H Uric Acid 9.4 H Calcium 8.1 L Total Bilirubin NT-Pro-B Natriuret Pep 01/29/20 01/29/20 01/29/20 01:45 01:05 01:05 WBC 11.5 H Hgb MPV Gran # 8.31 H Seg Neutrophils % PT INR VBG Lactic Acid 2.8 H Anion Gap 17.0 H BUN Creatinine 1.3 H Glucose 160 H Uric Acid Calcium Total Bilirubin 1.8 H NT-Pro-B Natriuret Pep 6639.0 H Meds: Medications Acetaminophen (Tylenol) 650 mg PO Q4-6HP PRN; Protocol PRN Reason: Per Pain Protocol/Fever > 101 Last Admin: 01/30/20 07:56 Dose: 650 mg Documented by: Albuterol Sulfate (Ventolin) 2 puff INH Q4HP PRN PRN Reason: Shortness Of Breath Last Admin: 01/31/20 06:14 Dose: 2 puff Documented by: Atorvastatin Calcium (Lipitor) 80 mg PO HS [facility] Last Admin: 01/30/20 20:43 Dose: 80 mg Documented by: Bisacodyl (Dulcolax) 10 mg [place] Q2-3DAYS PRN PRN Reason: Constipation Clopidogrel Bisulfate (Plavix) 75 mg PO DAILY [facility] Last Admin: 01/31/20 09:50 Dose: 75 mg Documented by: Cyclobenzaprine HCl (Flexeril) 10 mg PO TIDP PRN PRN Reason: Pain Last Admin: 01/30/20 12:44 Dose: 10 mg Documented by: Docusate Sodium (Colace) 100 mg PO BID [facility] Last Admin: 01/31/20 09:50 Dose: 100 mg Documented by: Furosemide (Lasix) 40 mg IV Q8 [facility] Heparin Sodium (Porcine) (Heparin) 5,000 unit SQ Q12 [facility] Last Admin: 01/31/20 09:50 Dose: 5,000 unit Documented by: Hydralazine HCl (Apresoline) 10 mg IV Q4-6HP PRN PRN Reason: Hypertension Magnesium Sulfate (Magnesium Sulfate) 2 gm in 50 mls @ 50 mls/hr IV UD PRN PRN Reason: MG = or < 1.7 Last Infusion: 01/31/20 08:30 Dose: Infused Documented by: Ceftriaxone Sodium 2 gm/ (Dextrose) 50 mls @ 100 mls/hr IV DAILY [facility]; Protocol Last Infusion: 01/31/20 09:30 Dose: Infused Documented by: Levofloxacin (Levaquin) 750 mg in 150 mls @ 100 mls/hr IV DAILY [facility]; Protocol Last Admin: 01/31/20 08:59 Dose: 100 mls/hr Documented by: Sodium Chloride (Sodium Chloride 0.9%) 250 mls @ 20 mls/hr IV .[id number] [facility] Last Admin: 01/31/20 04:42 Dose: Not Given Documented by: Diltiazem HCl 125 mg/ Sodium (Chloride) 125 mls @ 5 mls/hr IV Q12HP PRN; Protocol PRN Reason: Tachyarrhythmias Iron Carb/Multivit/[place]/Folic Acid (Multivitamin W/Minerals) 1 tab PO DAILY [facility] Last Admin: 01/31/20 09:51 Dose: 1 tab Documented by: Lisinopril (Zestril) 2.5 mg PO DAILY [facility] Last Admin: 01/31/20 10:04 Dose: 2.5 mg Documented by: Melatonin (Melatonin 3mg Tablet) 3 mg PO HSP PRN PRN Reason: Insomnia Metoprolol Succinate (Toprol Xl) 100 mg PO DAILY [facility] Last Admin: 01/31/20 09:50 Dose: 100 mg Documented by: Metoprolol Tartrate (Lopressor) 5 mg IV Q5M PRN PRN Reason: Heart Rate > 140 bpm Nitroglycerin (Nitrostat) 0.4 mg SL Q5M PRN PRN Reason: Chest Pain Omeprazole (Prilosec) 20 mg PO ACB [facility] Last Admin: 01/31/20 09:51 Dose: 20 mg Documented by: Ondansetron HCl (Zofran Odt) 4 mg SL Q4-6HP PRN; Protocol PRN Reason: Nausea And Vomiting Ondansetron HCl (Zofran) 4 mg IV Q4-6HP PRN; Protocol PRN Reason: Nausea And Vomiting Polyethylene Glycol (Miralax) 17 gm PO DAILYP PRN PRN Reason: Constipation Potassium Chloride (Klor-Con) 40 meq PO DAILYP PRN PRN Reason: K+ < 3.5 Prednisone (Prednisone) 40 mg PO QAC [facility] Last Admin: 01/31/20 09:50 Dose: 40 mg Documented by: Senna/Docusate Sodium (Senna Plus Tablet) 1 tab PO HS [facility] Last Admin: 01/30/20 20:43 Dose: 1 tab Documented by: Sodium Chloride (Saline Flush) 10 ml IV Q8 [facility] Last Admin: 01/31/20 05:10 Dose: 10 ml Documented by: Tamsulosin HCl (Flomax) 0.4 mg PO DAILY [facility] Last Admin: 01/31/20 09:50 Dose: 0.4 mg Documented by: Tiotropium [place] (Spiriva) 18 mcg INH DAILY [facility] Last Admin: 01/31/20 09:52 Dose: 1 puff Documented by: Medical - PN: A/P - Time Spent With Patient Total time spent is greater than 50% in coordination of care (as documented) at patient's floor/unit and/or counseling patient: 25 - 35 minutes (1) Atrial fibrillation with RVR Status: Acute Assessment and plan: * Atrial fibrillation with rapid ventricular rate-exacerbated by pneumonia/hypoxic respiratory failure. Ongoing rate control measures on beta- brenna/CCB. Await echocardiogram. * Acute decompensated systolic heart failure with EF 35%. Continue GRETTA inhibitor/beta brenna/aggressive diuresis. * Right lower lobe pneumonia-continue antibiotic coverage. Await COVID 19. Blood cultures. Continue pulmonary toilet and aspiration precaution * Acute hypoxic respiratory failure on [address] chest noted pleural effusion. Thoracentesis ordered. * Mild cognitive dysfunction/early dementia-placement per case management * History of CAD on GRETTA inhibitor/beta-brenna/nitro//Plavix/statin * History of hypertension continue lisinopril, beta-brenna * History of BPH continue tamsulosin * Hyperlipidemia continue statin * AntiCoagulation on Coumadin * GERD on PPI * Chronic pain continue oxycodone/morphine home dose Plan * Antibiotic coverage * Thoracentesis * Aggressive diuresis * CHF management per guidelines * Pre-existing medical condition management as above * PT OT nutrition support * Discharge planning per case management likely to assisted living in the setting of cognitive dysfunction Current Visit: Yes Medical - PN: Qual - Stroke Symptom Onset Unknown: No - VTE Deep Vein Thrombosis/Pulmonary Embolism Present on Admission: No
--- NOTE | 2020-01-31 12:47 | Ultrasound Report ---
CLINICAL INFORMATION: Evaluate effusions. COMPARISON: None. FINDINGS: There is minimal bilateral pleural effusion. It is insufficient volume to allow safe thoracentesis IMPRESSION: Small bilateral pleural effusions Interpreted and Authenticated by: Niranjan Hilario 01/31/20
[2020-01-31] MEDS: FUROSEMIDE 40 MG/4 ML VIAL IV SCH ×2 (14:05→22:03)
[2020-01-31] MEDS: CYCLOBENZAPRINE 10 MG TABLET PO PRN (14:09)
[2020-01-31] MEDS: ATORVASTATIN 40 MG TABLET PO SCH (20:23)
[2020-01-31] MEDS: SENNOSIDES/DOCUSATE SODIUM 1 TAB TABLET PO SCH (20:23)
[2020-01-31] MEDS ORDERED: METOPROLOL TARTRATE 5 MG/5 ML VIAL IV PRN (22:49)
[2020-01-31] MEDS ORDERED: NITROGLYCERIN 0.4 MG TAB.SUBL SL PRN (22:49)
[2020-01-31] MEDS ORDERED: ACETAMINOPHEN 325 MG TABLET PO PRN (22:49)
[2020-01-31] MEDS ORDERED: POLYETHYLENE GLYCOL 3350 17 GM PACKET PO PRN (22:49)
[2020-01-31] MEDS ORDERED: MELATONIN 3 MG TABLET PO PRN (22:49)
[2020-01-31] MEDS ORDERED: hydrALAZINE 20 MG/ML VIAL IV PRN (22:49)
[2020-01-31] MEDS ORDERED: ONDANSETRON 4 MG ODT TABLET SL PRN (22:49)
[2020-01-31] MEDS ORDERED: CYCLOBENZAPRINE 10 MG TABLET PO PRN (22:49)
[2020-01-31] MEDS ORDERED: POTASSIUM CHLORIDE 20 MEQ PACKET PO PRN (22:49)
[2020-01-31] MEDS ORDERED: BISACODYL 10 MG SUPP.RECT PR PRN (22:49)
[2020-01-31] MEDS ORDERED: MAGNESIUM SULFATE 2 GM/50 ML BAG IV PRN (22:49)
[2020-01-31] MEDS ORDERED: ONDANSETRON 4 MG/2 ML VIAL IV PRN (22:49)
[2020-01-31] MEDS ORDERED: ALBUTEROL SULFATE 200 PUFF INHALER INH PRN (22:49)
[2020-02-01] MEDS ORDERED: FUROSEMIDE 40 MG/4 ML VIAL IV ONE (05:37)
[2020-02-01] MEDS: 0.9 % SODIUM CHLORIDE 10 ML SYRINGE IV SCH ×3 (05:39→21:45)
[2020-02-01] MEDS ORDERED: FUROSEMIDE 40 MG/4 ML VIAL IV SCH (06:00)
[2020-02-01 06:05] LABS: Hemoglobin 13.4 g/dL (13.7-17.5); Mean Cell Volume 83.7 fL (80.0-100.0); Mean Corpuscular HGB Conc 32.7 g/dL (31.0-36.0); Mean Platelet Volume 10.8 fL (7.4-10.4); Platelet Count 262 K/mcL (140-440); Red Cell Distribution Width 13.1 % (11.5-14.5); WBC 13.5 K/mcL (4.50-11.00)
[2020-02-01 06:40] LABS: ALT/SGPT 18 U/l (0-40); AST/SGOT 20 U/l (0-37); Albumin 3.6 gm/dL (3.2-5.2); Albumin/Globulin Ratio 1.3 (1.0-2.3); Alkaline Phosphatase 95 U/L (39-117); Bilirubin,Direct < 0.2 mg/dL (0.0-0.3); Bilirubin,Total 0.5 mg/dL (0.0-1.0); Blood Urea Nitrogen 29 mg/dl (8-23); Calcium 8.7 mg/dl (8.6-10.4); Carbon Dioxide 30 mmol/L (22-30); Globulin 2.8 gm/dL (2.2-3.7); Glomerular Filtration Rate 60; Glucose 179 mg/dL (70-105); INR 1.1 (0.9-1.1); Lactate Dehydrogenase 187 U/L (94-250); Phosphorous 3.6 mg/dL (2.7-4.5); Prothrombin Time 14.7 sec (11.9-14.5); Triglycerides 76 mg/dl (<150); Uric Acid 9.9 mg/dL (2.5-8.0)
[2020-02-01 06:44] LABS: Chloride 95 mmol/L (96-108)
[2020-02-01] MEDS ORDERED: OMEPRAZOLE 20 MG CAPSULE PO SCH (07:30)
[2020-02-01 07:46] LABS: Lymphocytes % 11 % (15-49); Monocytes % (Manual) 5 % (1-12); Platelet Estimate NORMAL (NORMAL); RBC Morphology NORMAL (NORMAL); Segmented Neutrophils % 84 % (38-78)
[2020-02-01] MEDS ORDERED: predniSONE 20 MG TABLET PO SCH (08:00)
[2020-02-01] MEDS ORDERED: LISINOPRIL 5 MG TABLET PO SCH (09:00)
[2020-02-01] MEDS ORDERED: MULTIVIT,THER IRON,CA,FA & MIN 1 TABLET PO SCH (09:00)
[2020-02-01] MEDS ORDERED: TIOTROPIUM BROMIDE 18 MCG INHALANT INH SCH (09:00)
[2020-02-01] MEDS ORDERED: HEPARIN 5,000 UNIT/ML VIAL SQ SCH (09:00)
[2020-02-01] MEDS ORDERED: CLOPIDOGREL 75 MG TABLET PO SCH (09:00)
[2020-02-01] MEDS ORDERED: TAMSULOSIN 0.4 MG CAPSULE PO SCH (09:00)
[2020-02-01] MEDS ORDERED: METOPROLOL SUCCINATE 50 MG TAB.XL.24H PO SCH (09:00)
[2020-02-01] MEDS ORDERED: cefTRIAXone 2 GM in DEXTROSE 5% IN WATER 50 ML IV SCH (09:00)
[2020-02-01] MEDS ORDERED: DOCUSATE SODIUM 100 MG CAPSULE PO SCH (09:00)
--- NOTE | 2020-02-01 09:38 | Internal Med Progress Note ---
Medical - PN: Subj Patient information: Note initiated : 02/01/20 at 9:36 am Service Date, if different from initiated Date: [] Patient: Roman Vega 74 y/o M admitted on 01/29/20 for SOB, abd pain, chest pain. Chief Complaint: [] Interval history: Mr. Vega is a 74 year old M with a known history of atrial fibrillation on anticoagulation, chronic pain who presents to the ER with 5-day onset of worsening shortness of breath/effort intolerance and poor functionality. He has associated abdominal discomfort. Patient endorses to sick contacts being his friend who lives in the same property trailer. He however denies shaking chills, headache, photophobia. Endorses to clear productive sputum. Denies rash, arthralgia myalgia. Initial work-up in the ER was consistent with A. fib RVR and bilateral infiltrates/right-sided effusion. Patient started on diltiazem drip with rate improving from over 150s to 120s. Patient was started on antibiotic coverage following blood cultures and hospital service was consulted At the time evaluation patient is alert but in moderate distress requiring 5 L o xygen. Rate currently on 120. Patient endorses to history as above. He however occasionally mentioned was not able to provide a detailed history. He stopped taking his prior medications for a long time. He appears fatigued and lethargic. COVID test pending. 01/29-patient currently on 5 years oxygen. Rate controlled. Home meds list obtained. Patient has stopped taking his medication since a long time. Will restart beta-brenna/GRETTA inhibitor. Echo pending. CT chest today. COVID-19 test pending. 01/30-EF 35%. On 6 L oxygen. Severe decompensation. Aggressive diuresis with 3 times a day Lasix. Significant pleural effusion on chest CT. Alert oriented. No overnight fever chills. Continuing antibiotic coverage. Await thoracentesis. Rate controlled on beta-brenna. COVID-19 negative. Persistent cognitive dysfunction. Per case management patient has been living at home and has not letter in his room for the last 5 years. discovered that the room was latent with field/garbage and dog feces. Also patient has demonstrated gradual cognitive decline. He would likely benefit from transfer to assisted living on discharge. Case management aware and coordinating. 01/31-significant clinical improvement and now on room air. Responding well to diuretics. Lower diuretic dose today to 20 mg every 8 hour. White count 3.5 however low probability pneumonia as rapid resolution on chest infiltrate/effusion. No drainable effusion on chest ultrasound. De-escalate antibiotics to Levaquin. Currently rate controlled. Creatinine 1.2. Transfer to medical floor. Continue PT OT, discharge planning per case management. - Constitutional Vitals: Vital Signs Temp Pulse Resp BP Pulse Ox 98.4 F 88 22 111/72 99 02/01/20 08:00 01/31/20 14:00 02/01/20 02:07 02/01/20 08:00 02/01/20 08:00 Period Temp Pulse Resp BP Sys/Joel Pulse Ox Last 24 Hr 97.3 F-98.4 F 88 20-22 99-115/61-77 90-99 Intake and Output 01/31/20 02/01/20 02/01/20 21:59 05:59 13:59 Intake Total 320 237 Output Total 1075 1300 Balance -755 -1063 Weight 208 lb 12.8 oz Intake & Output: Intake & Output 01/31/20 02/01/20 02/01/20 21:59 05:59 13:59 Intake Total 320 237 Output Total 1075 1300 Balance -755 -1063 Weight 208 lb 12.8 oz Intake: Oral 320 237 Output: Void Amount 1075 1300 Other: Meal Ice cream Percent of Meal Consumed crackers 2 Feeding Ability Independent Urine Appearance Clear Clear Urine Color Bright Yellow Bright Yellow Urine Odor Normal General appearance: no acute distress Exam: Alert oriented Nonlabored breathing No anxiety however appears withdrawn Telemetry A. fib Medical - PN: Obj Da - Labs CBC & Chem 7: 02/01/20 04:23 02/01/20 04:23 Labs: Abnormal Lab Results 02/01/20 02/01/20 02/01/20 04:23 04:23 04:23 WBC 13.5 H Hgb 13.4 L MPV 10.8 H Seg Neutrophils % 84 H Lymphocytes % 11 L PT 14.7 H INR Chloride 95 L BUN 29 H Creatinine Glucose 179 H Uric Acid 9.9 H Calcium 01/31/20 01/31/20 01/31/20 04:04 04:04 04:04 WBC 11.3 H Hgb MPV 10.9 H Seg Neutrophils % 84 H Lymphocytes % PT 14.7 H INR Chloride BUN 26 H Creatinine 1.3 H Glucose 155 H Uric Acid 10.1 H Calcium 01/30/20 01/30/20 01/30/20 04:00 04:00 04:00 WBC 11.2 H Hgb 13.6 L MPV 10.6 H Seg Neutrophils % Lymphocytes % PT 16.3 H INR 1.3 H Chloride BUN Creatinine 1.5 H Glucose 110 H Uric Acid 9.4 H Calcium 8.1 L Meds: Medications Acetaminophen (Tylenol) 650 mg PO Q4-6HP PRN; Protocol PRN Reason: Per Pain Protocol/Fever > 101 Albuterol Sulfate (Ventolin) 2 puff INH Q4HP PRN PRN Reason: Shortness Of Breath Last Admin: 02/01/20 08:02 Dose: 2 puff Documented by: Atorvastatin Calcium (Lipitor) 80 mg PO HS [facility] Bisacodyl (Dulcolax) 10 mg [place] Q2-3DAYS PRN PRN Reason: Constipation Clopidogrel Bisulfate (Plavix) 75 mg PO DAILY [facility] Last Admin: 02/01/20 08:07 Dose: 75 mg Documented by: Cyclobenzaprine HCl (Flexeril) 10 mg PO TIDP PRN PRN Reason: Pain Last Admin: 02/01/20 08:16 Dose: 10 mg Documented by: Docusate Sodium (Colace) 100 mg PO BID [facility] Last Admin: 02/01/20 08:07 Dose: 100 mg Documented by: Furosemide (Lasix) 40 mg IV Q8 [facility] Last Admin: 02/01/20 05:38 Dose: 40 mg Documented by: Heparin Sodium (Porcine) (Heparin) 5,000 unit SQ Q12 [facility] Last Admin: 02/01/20 08:07 Dose: 5,000 unit Documented by: Hydralazine HCl (Apresoline) 10 mg IV Q4-6HP PRN PRN Reason: Hypertension Ceftriaxone Sodium 2 gm/ (Dextrose) 50 mls @ 100 mls/hr IV Q24H [facility]; Protocol Last Admin: 02/01/20 08:10 Dose: 100 mls/hr Documented by: Levofloxacin (Levaquin) 750 mg in 150 mls @ 100 mls/hr IV Q24H [facility]; Protocol Last Admin: 02/01/20 08:10 Dose: 100 mls/hr Documented by: Magnesium Sulfate (Magnesium Sulfate) 2 gm in 50 mls @ 50 mls/hr IV UD PRN PRN Reason: MG = or < 1.7 Iron Carb/Multivit/[place]/Folic Acid (Multivitamin W/Minerals) 1 tab PO DAILY [facility] Last Admin: 02/01/20 08:08 Dose: 1 tab Documented by: Lisinopril (Zestril) 2.5 mg PO DAILY [facility] Last Admin: 02/01/20 08:16 Dose: 2.5 mg Documented by: Melatonin (Melatonin 3mg Tablet) 3 mg PO HSP PRN PRN Reason: Insomnia Metoprolol Succinate (Toprol Xl) 100 mg PO DAILY [facility] Last Admin: 02/01/20 08:07 Dose: 100 mg Documented by: Metoprolol Tartrate (Lopressor) 5 mg IV Q5M PRN PRN Reason: Heart Rate > 140 bpm Nitroglycerin (Nitrostat) 0.4 mg SL Q5M PRN PRN Reason: Chest Pain Omeprazole (Prilosec) 20 mg PO ACB [facility] Last Admin: 02/01/20 08:07 Dose: 20 mg Documented by: Ondansetron HCl (Zofran Odt) 4 mg SL Q4-6HP PRN; Protocol PRN Reason: Nausea And Vomiting Ondansetron HCl (Zofran) 4 mg IV Q4-6HP PRN; Protocol PRN Reason: Nausea And Vomiting Polyethylene Glycol (Miralax) 17 gm PO DAILYP PRN PRN Reason: Constipation Last Admin: 02/01/20 08:07 Dose: 17 gm Documented by: Potassium Chloride (Klor-Con) 40 meq PO DAILYP PRN PRN Reason: K+ < 3.5 [facility] ([facility]) [facility] Last Admin: 02/01/20 08:08 Dose: 40 mg Documented by: Senna/Docusate Sodium (Senna Plus Tablet) 1 tab PO [facility] Sodium Chloride (Saline Flush) 10 ml IV Q8 [facility] Last Admin: 02/01/20 05:39 Dose: 10 ml Documented by: Tamsulosin HCl (Flomax) 0.4 mg PO DAILY [facility] Last Admin: 02/01/20 08:07 Dose: 0.4 mg Documented by: Tiotropium [place] (Spiriva) 18 mcg INH DAILY [facility] Last Admin: 02/01/20 08:11 Dose: 1 puff Documented by: Medical - PN: A/P - Time Spent With Patient Total time spent is greater than 50% in coordination of care (as documented) at patient's floor/unit and/or counseling patient: 25 - 35 minutes (1) Atrial fibrillation with RVR Status: Acute Assessment and plan: * A. fib with RVR. Rate controlled on beta-brenna.EF 35% * Acute decompensated systolic heart failure with EF 35%. Responding well to diuretics. Continue GRETTA inhibitor/beta brenna * Acute hypoxic respiratory failure fully resolved with diuresis. Improved interval chest imaging. Now on room air. * Right lower lobe [id number] antibiotic coverage. Negative COVID 19/blood cultures. Continue pulmonary toilet and aspiration precaution * Mild cognitive dysfunction/early dementia * History of CAD on GRETTA inhibitor/beta-brenna/nitro/Plavix/statin * History of hypertension stable on lisinopril, beta-brenna * History of BPH continue tamsulosin * Hyperlipidemia continue statin * AntiCoagulation for CVA prophylaxis-patient was prescribed rivaroxaban but has not taken any medications for over a year. Currently not indicated unless patient willing to take anticoagulants for longer term * GERD on PPI * Chronic pain continue oxycodone/morphine home dose Plan * De-escalate antibiotic coverage * Transfer to medical floor * Lower diuretic dose * Continue CHF management per guidelines * Pre-existing medical condition management as above * PT OT nutrition support * Discharge planning per case management Current Visit: Yes Medical - PN: Qual - Stroke Symptom Onset Unknown: No - VTE Deep Vein Thrombosis/Pulmonary Embolism Present on Admission: No
[2020-02-01] MEDS ORDERED: LEVOFLOXACIN 750 MG/150 ML BAG IV SCH (10:00)
[2020-02-01] MEDS ORDERED: POTASSIUM CHLORIDE 20 MEQ PACKET PO PRN (10:04)
[2020-02-01] MEDS ORDERED: hydrALAZINE 20 MG/ML VIAL IV PRN (10:04)
[2020-02-01] MEDS ORDERED: POLYETHYLENE GLYCOL 3350 17 GM PACKET PO PRN (10:04)
[2020-02-01] MEDS ORDERED: NITROGLYCERIN 0.4 MG TAB.SUBL SL PRN (10:04)
[2020-02-01] MEDS ORDERED: METOPROLOL TARTRATE 5 MG/5 ML VIAL IV PRN (10:04)
[2020-02-01] MEDS ORDERED: ALBUTEROL SULFATE 200 PUFF INHALER INH PRN (10:04)
[2020-02-01] MEDS ORDERED: ONDANSETRON 4 MG/2 ML VIAL IV PRN (10:04)
[2020-02-01] MEDS ORDERED: ONDANSETRON 4 MG ODT TABLET SL PRN (10:04)
[2020-02-01] MEDS ORDERED: MAGNESIUM SULFATE 2 GM/50 ML BAG IV PRN (10:04)
[2020-02-01] MEDS ORDERED: MELATONIN 3 MG TABLET PO PRN (10:04)
[2020-02-01] MEDS ORDERED: BISACODYL 10 MG SUPP.RECT PR PRN (10:04)
[2020-02-01] MEDS: FUROSEMIDE 40 MG/4 ML VIAL IV SCH ×2 (14:16→21:45)
[2020-02-01] MEDS: CYCLOBENZAPRINE 10 MG TABLET PO PRN (14:39)
[2020-02-01] MEDS ORDERED: SENNOSIDES/DOCUSATE SODIUM 1 TAB TABLET PO SCH ×2 (21:00)
[2020-02-01] MEDS ORDERED: ATORVASTATIN 40 MG TABLET PO SCH ×2 (21:00)
[2020-02-01] MEDS: DOCUSATE SODIUM 100 MG CAPSULE PO SCH (21:45)
[2020-02-01] MEDS: HEPARIN 5,000 UNIT/ML VIAL SQ SCH (21:45)
[2020-02-02] MEDS: ACETAMINOPHEN 325 MG TABLET PO PRN ×2 (03:47→11:59)
[2020-02-02] MEDS: 0.9 % SODIUM CHLORIDE 10 ML SYRINGE IV SCH (05:31)
[2020-02-02] MEDS: FUROSEMIDE 40 MG/4 ML VIAL IV SCH (05:31)
[2020-02-02 06:40] LABS: Hematocrit 43.6 % (40.1-51.0); Hemoglobin 13.8 g/dL (13.7-17.5); Mean Corpuscular HGB Conc 31.7 g/dL (31.0-36.0); Mean Platelet Volume 10.6 fL (7.4-10.4); Platelet Count 259 K/mcL (140-440); RBC 5.19 M/mcL (4.63-6.08); Red Cell Distribution Width 13.2 % (11.5-14.5); WBC 10.3 K/mcL (4.50-11.00)
[2020-02-02 07:06] LABS: ALT/SGPT 17 U/l (0-40); AST/SGOT 21 U/l (0-37); Albumin 3.7 gm/dL (3.2-5.2); Albumin/Globulin Ratio 1.4 (1.0-2.3); Alkaline Phosphatase 94 U/L (39-117); Bilirubin,Direct < 0.2 mg/dL (0.0-0.3); Bilirubin,Total 0.3 mg/dL (0.0-1.0); Calcium 8.5 mg/dl (8.6-10.4); Carbon Dioxide 28 mmol/L (22-30); Globulin 2.7 gm/dL (2.2-3.7); Glomerular Filtration Rate 54; Glucose 185 mg/dL (70-105); Lactate Dehydrogenase 209 U/L (94-250); Phosphorous 3.8 mg/dL (2.7-4.5); Triglycerides 92 mg/dl (<150); Uric Acid 9.7 mg/dL (2.5-8.0)
[2020-02-02 07:09] LABS: Blood Urea Nitrogen 37 mg/dl (8-23); Chloride 93 mmol/L (96-108)
[2020-02-02] MEDS: CYCLOBENZAPRINE 10 MG TABLET PO PRN (07:14)
[2020-02-02] MEDS ORDERED: OMEPRAZOLE 20 MG CAPSULE PO SCH (07:30)
[2020-02-02] MEDS ORDERED: predniSONE 20 MG TABLET PO SCH (08:00)
--- NOTE | 2020-02-02 08:31 | Discharge Summary ---
Medical - DS: Prov Patient information: Note initiated : 02/02/20 at 8:27 am Service Date, if different from initiated Date: [] Patient: Roman Vega 74 y/o M admitted on 01/29/20 for SOB, abd pain, chest pain. Chief Complaint: [] Date of admission: 01/29/20 08:17 Discharge date: 02/02/20 Consults: 01/29/20 Consult to Physician [CONS] Stat Comment: Consulting Provider: José Villalobos Reason For Exam: Physician to Consult Medical - DS: Meds - Discharge Medications Prescriptions: Furosemide [Lasix] 20 mg PO DAILY #30 tab Transmission Status: Received by [facility] Levofloxacin [Levaquin] 750 mg PO Q48 #2 tab Transmission Status: Received by [facility] Active and Home Medications: Home Medications Atorvastatin [Lipitor] 80 mg PO HS 01/29/20 [History Confirmed 01/29/20 Last Taken Unknown] Clopidogrel Bisulfate [Plavix] 75 mg PO DAILY 01/29/20 [History Confirmed 01/29/20 Last Taken Unknown] Cyclobenzaprine [Flexeril] 10 mg PO TID PRN 01/29/20 [History Confirmed 01/29/20 Last Taken Unknown] Lisinopril [Zestril] 2.5 mg PO DAILY 01/29/20 [History Confirmed 01/29/20 Last Taken Unknown] Metoprolol Succinate [Toprol Xl] 100 mg PO DAILY 01/29/20 [History Confirmed 01/29/20 Last Taken Unknown] Rivaroxaban [Xarelto] 20 mg PO HS 01/29/20 [History Confirmed 01/29/20 Last Taken Unknown] Nitroglycerin [Nitrostat] 0.4 mg SL Q5M PRN MDD 3 01/30/20 [History Confirmed 01/30/20 Last Taken Unknown] Omeprazole 20 mg PO ACB 01/30/20 [History Confirmed 01/30/20 Last Taken Unknown] Tamsulosin HCl 0.4 mg PO DAILY 01/30/20 [History Confirmed 01/30/20 Last Taken Unknown] Levofloxacin [Levaquin] 750 mg PO Q48 #2 tab 02/02/20 [Rx Last Taken Unknown] Medical - DS: Hosp Hospital Course: Discharge diagnosis * A. fib with RVR. Currently rate controlled on beta-brenna. EF 35% Bruce score over 2 mandating anticoagulation however patient has refused over the last year. Recommend follow-up with primary care physician for further discussion regarding anticoagulation for CVA prophylaxis. * AD HF systolic with EF 35%. Clinically well compensated following aggressive diuresis. Continue GRETTA inhibitor/beta brenna/Plavix * Acute hypoxic respiratory failure fully resolved with diuresis. Now on room air. * Right lower lobe pneumonia-continue Levaquin for additional 2 doses. Negative COVID 19 * Mild cognitive dysfunction/early dementia. At baseline * History of CAD on GRETTA inhibitor/beta-brenna/nitro/Plavix/statin * History of hypertension stable on lisinopril, beta-brenna * History of BPH continue tamsulosin * Hyperlipidemia continue statin * AntiCoagulation for CVA prophylaxis-patient was prescribed rivaroxaban but has not taken any medications for over a year. * GERD on PPI * Chronic pain continue oxycodone/morphine home dose Brief hospital course Mr. Vega is a 74 year old M with a known history of atrial fibrillation on anticoagulation, chronic pain who presents to the ER with 5-day onset of worsening shortness of breath/effort intolerance and poor functionality. He has associated abdominal discomfort. Patient endorses to sick contacts being his friend who lives in the same property trailer. He however denies shaking chills, headache, photophobia. Endorses to clear productive sputum. Denies rash, arthralgia myalgia. Initial work-up in the ER was consistent with A. fib RVR and bilateral infiltrates/right-sided effusion. Patient started on diltiazem drip with rate improving from over 150s to 120s. Patient was started on antibiotic coverage following blood cultures and hospital service was consulted At the time evaluation patient is alert but in moderate distress requiring 5 L oxygen. Rate currently on 120. Patient endorses to history as above. He however occasionally mentioned was not able to provide a detailed history. He stopped taking his prior medications for a long time. He appears fatigued and lethargic. COVID test pending. 01/29-patient currently on 5 years oxygen. Rate controlled. Home meds list obtained. Patient has stopped taking his medication since a long time. Will restart beta-brenna/GRETTA inhibitor. Echo pending. CT chest today. COVID-19 test pending. 01/30-EF 35%. On 6 L oxygen. Severe decompensation. Aggressive diuresis with 3 times a day Lasix. Significant pleural effusion on chest CT. Alert oriented. No overnight fever chills. Continuing antibiotic coverage. Await thoracentesis. Rate controlled on beta-brenna. COVID-19 negative. Persistent cognitive dysfunction. Per case management patient has been living at home and has not letter in his room for the last 5 years. discovered that the room was latent with field/garbage and dog feces. Also patient has demonstrated gradual cognitive decline. He would likely benefit from transfer to assisted living on discharge. Case management aware and coordinating. 01/31-significant clinical improvement and now on room air. Responding well to diuretics. Lower diuretic dose today to 20 mg every 8 hour. White count 3.5 however low probability pneumonia as rapid resolution on chest infiltrate/effusion. No drainable effusion on chest ultrasound. De-escalate antibiotics to Levaquin. Currently rate controlled. Creatinine 1.2. Transfer to medical floor. Continue PT OT, discharge planning per case management. 02/01-patient doing well. Discharging advised to continue Levaquin for additional 2 doses. Follow-up primary care physician for better optimization of general medical issues including possible reinitiation of anticoagulation for CVA prophylaxis. Compliance has been a major barrier to patient's care stopped taking all his medication over the last 1 year or so. Appointment is being scheduled with primary care physician's office prior to discharge. Detailed discharge structures below. Discharge diagnosis: . - Time Spent with Patient Total time spent providing and/or coordinating discharge services: Greater than 30 minutes Medical - DS: Exam - Constitutional Vitals: Vital Signs Temp Pulse Pulse Pulse Resp BP Pulse Ox 02/02/20 07:16 97.9 F 100 H 100 H 14 100/69 92 02/02/20 03:15 97.3 F 88 20 96/57 93 02/01/20 23:01 97.2 F 68 16 90/45 96 02/01/20 19:57 88 18 93 02/01/20 19:21 77 18 93 02/01/20 18:39 97.6 F 88 18 103/65 92 02/01/20 16:00 98.8 F 80 14 97/61 92 02/01/20 12:00 97.4 F 89 19 122/93 92 Intake and Output 02/01/20 02/02/20 02/02/20 21:59 05:59 13:59 Intake Total 240 300 Output Total 275 300 Balance -35 0 Intake: Oral 240 300 Output: Void Amount 275 300 Other: Meal Dinner Percent of Meal Consumed 100% Feeding Ability Independent Urine Appearance Clear Urine Color Pale Dark Yellow Urine Odor Normal # Voids 1 Weight 206 lb 14.4 oz Medical - DS: Data Labs on day of discharge: Labs from last 24 hours 02/02/20 02/02/20 04:30 04:30 WBC 10.3 RBC 5.19 Hgb 13.8 Hct 43.6 MCV 84.0 MCH 26.6 MCHC 31.7 RDW 13.2 Plt Count 259 MPV 10.6 H Total Counted Pending Band Neutrophils % Not Reportable Platelet Estimate Pending RBC Morphology Pending Sodium 137 Potassium 3.8 Chloride 93 L Carbon Dioxide 28 Anion Gap 16.0 BUN 37 H Creatinine 1.3 H GFR Calculation 54 Glucose 185 H Uric Acid 9.7 H Calcium 8.5 L Phosphorus 3.8 Magnesium 1.9 Total Bilirubin 0.3 Direct Bilirubin < 0.2 GGT 20 AST 21 ALT 17 Alkaline Phosphatase 94 Lactate Dehydrogenase 209 Total Protein 6.4 Albumin 3.7 Globulin 2.7 Albumin/Globulin Ratio 1.4 Triglycerides 92 Preliminary micro results at discharge 01/29/20 02:20 Blood Culture - Preliminary Blood 01/29/20 02:15 Blood Culture - Preliminary Blood Medical - DS: A/P - Patient/Caregiver Discharge Instructions Activity: increase activity as tolerated Diet: Low Sodium (2gm) Additional Instructions: Follow-up PCP as scheduled Antibiotics for additional 2 doses Continue aggressive bowel regimen to prevent constipation Continue fall precautions Daily weights measurements and take additional 20 mg Lasix for 3 days if weight gain over 4 pounds over baseline or worsening SOB and call primary care physician if inadequate response to Lasix [facility] will be calling you for home services. If you have not heard from them in 48 hours, give them a call to set up an appointment for the nurse to come to your house. [phone] High protein calorie supplements All meals on chair sitting upright at 90 degrees to prevent aspiration Return to ER if worsening fever chills shortness of breath, diarrhea, bleeding Review risk and side effect profile of medications including antibiotics. Side effect may include mild to severe reaction including rash, diarrhea, cdiff and even which can be prevented by close follow-up with PCP and monitoring for side effects Refrain from smoking and alcohol Continue diet and activity as advised Discussed importance of medication adherence Please review medication list with patient prior to discharge Please schedule follow-up with PCP/Providers prior to discharge and provide printouts Prescriptions: Furosemide [Lasix] 20 mg PO DAILY #30 tab Transmission Status: Received by [facility] Levofloxacin [Levaquin] 750 mg PO Q48 #2 tab Transmission Status: Received by [facility] - Problem Maintenance (1) Atrial fibrillation with RVR Status: Acute - Follow up Plan Follow up with: Nick Vasquez ARNP [Physician] - 02/12/20 1:00 pm Disposition: Home Health Service Care Plan Goals: This discharge packet is provided to you to help keep you informed about your care. We want to ensure you get everything you need when you go home. You will also be receiving a call from us in a few days to follow up with you and see how you are doing since your discharge. This gives us a chance to listen to any concerns you maybe experiencing since you were discharged or any additional needs you may have, as well as providing us feedback on your care experience. We strive to always provide excellent care and thank you for your feedback and for choosing [facility]. Prognosis: Fair Rehab Potential: Fair I certify that the patient requires SNF services: No Overall status at discharge: patient is progressing back to baseline Medical - DS: Qual - VTE Deep Vein Thrombosis/Pulmonary Embolism Present on Admission: No
[2020-02-02 08:32] LABS: Lymphocytes % 12 % (15-49); Monocytes % (Manual) 4 % (1-12); Platelet Estimate NORMAL (NORMAL); RBC Morphology NORMAL (NORMAL); Segmented Neutrophils % 84 % (38-78)
[2020-02-02] MEDS ORDERED: METOPROLOL SUCCINATE 50 MG TAB.XL.24H PO SCH (09:00)
[2020-02-02] MEDS ORDERED: MULTIVIT,THER IRON,CA,FA & MIN 1 TABLET PO SCH (09:00)
[2020-02-02] MEDS ORDERED: LISINOPRIL 5 MG TABLET PO SCH (09:00)
[2020-02-02] MEDS ORDERED: TAMSULOSIN 0.4 MG CAPSULE PO SCH (09:00)
[2020-02-02] MEDS ORDERED: TIOTROPIUM BROMIDE 18 MCG INHALANT INH SCH (09:00)
[2020-02-02] MEDS ORDERED: CLOPIDOGREL 75 MG TABLET PO SCH (09:00)
[2020-02-02] MEDS: HEPARIN 5,000 UNIT/ML VIAL SQ SCH (09:47)
[2020-02-02] MEDS: DOCUSATE SODIUM 100 MG CAPSULE PO SCH (09:48)
[2020-02-02] MEDS ORDERED: LEVOFLOXACIN 750 MG/150 ML BAG IV SCH (10:00)
== END 2020-02-02 13:11 | disposition home health service (06) | DRG 308 ==
LOC: ED 00:49 → ICU 08:17 → MEDSUR 02-01 13:16
PROVIDERS: ADMIT Internal Medicine; ATTEND Internal Medicine

== ENCOUNTER 2020-02-14 15:51 | Inpatient (IN) ==
--- NOTE | 2020-02-14 16:22 | Emergency Department Note ---
General Adult HPI - General Chief complaint: Shortness of Breath/Dyspnea Stated complaint: sob Time Seen by Provider: 02/14/20 15:53 Source: patient Mode of arrival: ambulatory Limitations: no limitations - History of Present Illness HPI Narrative: Patient presents emergency department for evaluation of shortness of breath. He was recently hospitalized for A. fib and RVR, CHF, pneumonia. Currently off antibiotics. Denies cough. No fever. He had increased shortness of breath for the past couple of days. He has a little bit of right-sided chest discomfort. No increased lower extremity swelling. No other complaints. - Related Data Home Medications Medication Instructions Recorded Confirmed Atorvastatin [Lipitor] 80 mg PO HS 01/29/20 02/14/20 Clopidogrel Bisulfate [Plavix] 75 mg PO DAILY 01/29/20 02/14/20 Cyclobenzaprine [Flexeril] 10 mg PO TID PRN 01/29/20 02/14/20 Lisinopril [Zestril] 2.5 mg PO DAILY 01/29/20 02/14/20 Metoprolol Succinate [Toprol Xl] 100 mg PO DAILY 01/29/20 02/14/20 Rivaroxaban [Xarelto] 20 mg PO HS 01/29/20 02/14/20 Nitroglycerin [Nitrostat] 0.4 mg SL Q5M PRN MDD 3 01/30/20 02/14/20 Omeprazole 20 mg PO ACB 01/30/20 02/14/20 Tamsulosin HCl 0.4 mg PO DAILY 01/30/20 02/14/20 Lactobacillus Acidophilus 1 each PO BID 02/14/20 02/14/20 [Acidophilus] Previous Rx's Medication Instructions Recorded Furosemide [Lasix] 20 mg PO DAILY #30 tab 02/02/20 Levofloxacin [Levaquin] 750 mg PO Q48 #2 tab 02/02/20 Allergies Allergy/AdvReac Type Severity Reaction Status Date / Time No Known Drug Allergies Allergy Verified 02/14/20 15:51 Review of Systems Review of Systems: As above, all other systems reviewed and negative. Past Medical History - Past Medical History Attestation: Yes: The following information was validated with the patient. Medical history: Reports: atrial fibrillation, GERD, hyperlipidemia - Social History smoking status: Current every day smoker Physical Exam Limitations: no limitations General appearance: alert Head: atraumatic, normocephalic Eye: Present: normal appearance, PERRL, EOMI ENT: Present: normal exam Neck: Present: normal inspection Respiratory: Present: other (Diminished ) Cardiovascular: Present: tachycardia, irregular rhythm Extremities: Present: full ROM Neurological: Present: alert, oriented X3, CN II-XII intact. Absent: motor sensory deficit Psychiatric: Present: normal affect Skin: Present: warm Course Vital Signs Temperature 96.2 F L 02/14/20 15:51 Pulse Rate 65 02/14/20 15:51 Respiratory Rate 20 02/14/20 15:51 Blood Pressure 126/93 02/14/20 15:51 Pulse Oximetry (%) 96 02/14/20 15:51 Temperature 96.2 F L 02/14/20 15:51 Pulse Rate 48 L 02/14/20 20:16 Respiratory Rate 11 L 02/14/20 20:16 Blood Pressure 94/75 02/14/20 20:16 Pulse Oximetry (%) 94 02/14/20 20:16 Medical Decision Making - [facility] Narrative Medical decision making narrative: Emergency department course: EKG shows atrial fibrillation with rapid ventricular response, no acute ischemic changes, intervals otherwise normal. Patient's vital signs are charted as a heart rate which is bradycardic on the visit summary. This was readings that were picked up off the pulse ox. Patient was maintained on cardiac telemetry and when I walked past the monitor at the nurses station he was consistently in the 120s to 140s for heart rate. I spoke with on-call hospitalist. Case reviewed in detail over the phone. Patient is given 5 mg of Lopressor IV at the request of the hospitalist. Candy santiago is currently being evaluated by the hospitalist for possible admission. I discussed findings with the patient. His questions were answered. He is agreeable with the plan. Impression: A. fib with RVR, CHF Plan: As above - Lab Data Lab results reviewed: Yes I reviewed the patient's lab results. Result diagrams: 02/14/20 16:20 02/14/20 16:20 Lab Results 02/14/20 02/14/20 02/14/20 Range/Units 16:20 16:20 16:20 WBC 13.1 H (4.50-11.00) K/mcL RBC 5.30 (4.63-6.08) M/mcL Hgb 14.5 (13.7-17.5) g/dL Hct 45.0 (40.1-51.0) % MCV 84.9 (80.0-100.0) fL MCH 27.4 (26.0-34.0) pg MCHC 32.2 (31.0-36.0) g/dL RDW 13.5 (11.5-14.5) % Plt Count 311 (140-440) K/mcL MPV 10.8 H (7.4-10.4) fL Total Counted 100 Seg Neutrophils % 63 (38-78) % Band Neutrophils % Not Reportable Lymphocytes % 32 (15-49) % Monocytes % (Manual) 4 (1-12) % Eosinophils % (Manual) 1 (0-7) % Nucleated RBCs 1 H (0-0) % Platelet Estimate Normal (NORMAL) RBC Morphology Normal (NORMAL) VBG Lactic Acid 2.2 H (0.5-2.0) mmol/L Sodium 134 (133-145) mmol/L Potassium 4.2 (3.3-5.1) mmol/L Chloride 101 (96-108) mmol/L Carbon Dioxide 20 L (22-30) mmol/L Anion Gap 13.0 (8-16) BUN 25 H (8-23) mg/dl Creatinine 1.4 H (0.7-1.2) mg/dl GFR Calculation 49 Glucose 142 H (70-105) mg/dL Calcium 8.8 (8.6-10.4) mg/dl Total Bilirubin 1.2 H (0.0-1.0) mg/dL AST 25 (0-37) U/l ALT 15 (0-40) U/l Alkaline Phosphatase 104 (39-117) U/L Troponin T (0-0.03) ng/ml C-Reactive Protein (0.0-0.8) mg/dl NT-Pro-B Natriuret Pep 6980.0 H (0-125) pg/ml Total Protein 6.8 (5.9-8.4) gm/dL Albumin 3.9 (3.2-5.2) gm/dL Globulin 2.9 (2.2-3.7) gm/dL Albumin/Globulin Ratio 1.3 (1.0-2.3) 02/14/20 02/14/20 Range/Units 16:20 16:20 WBC (4.50-11.00) K/mcL RBC (4.63-6.08) M/mcL Hgb (13.7-17.5) g/dL Hct (40.1-51.0) % MCV (80.0-100.0) fL MCH (26.0-34.0) pg MCHC (31.0-36.0) g/dL RDW (11.5-14.5) % Plt Count (140-440) K/mcL MPV (7.4-10.4) fL Total Counted Seg Neutrophils % (38-78) % Band Neutrophils % Lymphocytes % (15-49) % Monocytes % (Manual) (1-12) % Eosinophils % (Manual) (0-7) % Nucleated RBCs (0-0) % Platelet Estimate (NORMAL) RBC Morphology (NORMAL) VBG Lactic Acid (0.5-2.0) mmol/L Sodium (133-145) mmol/L Potassium (3.3-5.1) mmol/L Chloride (96-108) mmol/L Carbon Dioxide (22-30) mmol/L Anion Gap (8-16) BUN (8-23) mg/dl Creatinine (0.7-1.2) mg/dl GFR Calculation Glucose (70-105) mg/dL Calcium (8.6-10.4) mg/dl Total Bilirubin (0.0-1.0) mg/dL AST (0-37) U/l ALT (0-40) U/l Alkaline Phosphatase (39-117) U/L Troponin T < 0.01 (0-0.03) ng/ml C-Reactive Protein 1.3 H (0.0-0.8) mg/dl NT-Pro-B Natriuret Pep (0-125) pg/ml Total Protein (5.9-8.4) gm/dL Albumin (3.2-5.2) gm/dL Globulin (2.2-3.7) gm/dL Albumin/Globulin Ratio (1.0-2.3) - Radiology Data Radiology results reviewed: Yes I reviewed the patient's radiology results. Disposition Pt seen by [facility]DER/PA only: No Clinical Impression: Atrial fibrillation with RVR, Congestive heart failure Disposition: Xfer As Inpt ([facility]) Referrals: Pedro,Nick, [employer] [Primary Care Provider] -
--- NOTE | 2020-02-14 17:15 | XRay Report ---
CLINICAL INFORMATION: sob COMPARISON: 01/31/2020 and baseline x-ray from 07/07/2011 FINDINGS: Mild cardiomegaly is unchanged. Mediastinum is unremarkable. Upper lobe pulmonary vessels are mildly distended with mild interstitial edema. Small infiltrate has developed in the right base with associated small right pleural effusion. Mild elevation right diaphragm is chronic IMPRESSION: 1. Mild CHF 2. Small right basilar infiltrate Interpreted and Authenticated by: Niranjan Hilario 02/14/20
[2020-02-14 17:19] LABS: Hemoglobin 14.5 g/dL (13.7-17.5); Mean Cell Volume 84.9 fL (80.0-100.0); Mean Corpuscular HGB Conc 32.2 g/dL (31.0-36.0); Mean Platelet Volume 10.8 fL (7.4-10.4); Platelet Count 311 K/mcL (140-440); Red Cell Distribution Width 13.5 % (11.5-14.5); WBC 13.1 K/mcL (4.50-11.00)
[2020-02-14 17:41] LABS: ALT/SGPT 15 U/l (0-40); AST/SGOT 25 U/l (0-37); Albumin 3.9 gm/dL (3.2-5.2); Albumin/Globulin Ratio 1.3 (1.0-2.3); Alkaline Phosphatase 104 U/L (39-117); Bilirubin,Total 1.2 mg/dL (0.0-1.0); Calcium 8.8 mg/dl (8.6-10.4); Chloride 101 mmol/L (96-108); Globulin 2.9 gm/dL (2.2-3.7); Glomerular Filtration Rate 49; Glucose 142 mg/dL (70-105)
[2020-02-14 17:47] LABS: Blood Urea Nitrogen 25 mg/dl (8-23); Carbon Dioxide 20 mmol/L (22-30)
[2020-02-14 18:07] LABS: Eosinophils % (Manual) 1 % (0-7); Lymphocytes % 32 % (15-49); Monocytes % (Manual) 4 % (1-12); Nucleated Red Blood Cells 1 % (0-0); Platelet Estimate NORMAL (NORMAL); RBC Morphology NORMAL (NORMAL); Segmented Neutrophils % 63 % (38-78)
[2020-02-14] MEDS ORDERED: METOPROLOL TARTRATE 5 MG/5 ML VIAL IV ONE (19:25)
--- NOTE | 2020-02-14 20:40 | Internal Med History&Physical ---
Medical - H&P: HPI Patient information: Note initiated : 02/14/20 at 8:32 pm Service Date, if different from initiated Date: [] Patient: Roman Vega 74 y/o M admitted on for sob. Chief Complaint: [] History of present illness: Mr. Vega is a 74 year old M Presents to the ED with shortness of breath x2 days. Patient is a poor historian. It is noted in old notes that he has mild cognitive dysfunction. Patient has recently been discharged from the hospital for A. fib and CHF and at that time possible pneumonia. He denies cough or fever. Denies chest pain other than a brief episode of right achy pain on his right lateral ribs while he was being driven over here that lasted a few seconds. Troponin was unremarkable. proBNP was similar to admission several weeks ago. Renal function similar to discharge lab several weeks ago. Blood cell count mildly elevated. Was mildly elevated last admission at 11 and then bumped to 13 dropped to 10 on day of discharge. No bandemia noted. Again he is afebrile in the ED. CRP is minimally elevated at 1.3, procalcitonin is low. He did have a COVID testing several weeks ago which is negative. Chest x-ray is similar to last chest x-ray done last admission, which shows some prominence and pulmonary vasculature and appears to be some fluid in the horiz ontal fissure. Lactate 2.2. Also oximetry seem to be fine on room air but an ABG was done which showed him to be PaO2 of 59. Patient is primarily been admitted at [place]. He was recently there several times in September for an STEMI and had several RCA stents for in-stent stenosis of previous cardiac stents. Was also noted to have medication noncompliance during those hospitalizations as history was gathered. Patient now admits that he has been off Xarelto for a period of time and he coul d not give me any inclination of the timing. I do see note from his primary care provider on February 11 about him not be able to afford Xarelto. We may need to go warfarin, which he said he has been on in the past. He believes he has been taking all of his other medications as prescribed. In the ED he was found to have heart rate of 120-140. He is also supposed to follow-up with Dr. Henson director of ancillary services for COPD. Review of Systems: Pertinent positives as above. Denies headache/fever/chills/n ausea/vomiting/chest or abdominal pain/cough/diarrhea. Remaining 10 point review of system reviewed negative Medical - H&P: PMH Medical history: Last medical history: Sleep disorder (ICD-780.50) (INY22-V90.9) ATRIAL FIBRILLATION (ICD-427.31) (KIQ12-M29.0) Noncompliance with medication regimen (ICD-V15.81) (JEK57-Z31.14) Acute NSTEMI (ICD-410.70) (SKS95-O37.4) CAD with stents COPD (ICD-496) (LOV80-C02.9) Osteoarthritis, knees, bilateral (ICD-715.96) (JOB74-O27.9) Arthropathy of lumbar facet (ICD-721.3) (WWG77-X50.96) Lumbar disc herniation with radiculopathy (ICD-722.10) (SVW67-M05.16) ESSENTIAL HYPERTENSION, BENIGN (ICD-401.1) (FHV39-Z36) Other hyperlipidemia (ICD-272.4) (EGT42-P24.4) Heartburn (ICD-787.1) (ANB24-V63) BPH with obstruction (ICD-600.0) (LSK52-Q45.1) DEPRESSIVE DISORDER NOT ELSEWHERE CLASSIFIED (ICD-311) (CYM87-K21.9) DM (ICD-250.00) (UBB26-J00.9) -?diet controlled RENAL INSUFFICIENCY (ICD-588.9) (RGZ01-C14.4) III Mild cognitive dysfunction GERD Backo abuse Systolic/diastolic heart failure Past surgical history: Back surgery left knee surgery cardiac stent Family history Mother at age 93 Father prostate cancer Social history: Patient smokes 1/2 pack/day Denies alcohol use Lives at home with Medical - H&P: Meds Home Medications Medication Instructions Recorded Confirmed Type Atorvastatin [Lipitor] 80 mg PO HS 01/29/20 02/14/20 History Clopidogrel Bisulfate [Plavix] 75 mg PO DAILY 01/29/20 02/14/20 History Cyclobenzaprine [Flexeril] 10 mg PO TID PRN 01/29/20 02/14/20 History Lisinopril [Zestril] 2.5 mg PO DAILY 01/29/20 02/14/20 History Metoprolol Succinate [Toprol Xl] 100 mg PO DAILY 01/29/20 02/14/20 History Rivaroxaban [Xarelto] 20 mg PO HS 01/29/20 02/14/20 History Nitroglycerin [Nitrostat] 0.4 mg SL Q5M PRN MDD 3 01/30/20 02/14/20 History Omeprazole 20 mg PO ACB 01/30/20 02/14/20 History Tamsulosin HCl 0.4 mg PO DAILY 01/30/20 02/14/20 History Furosemide [Lasix] 20 mg PO DAILY #30 tab 02/02/20 02/14/20 Rx Levofloxacin [Levaquin] 750 mg PO Q48 #2 tab 02/02/20 02/14/20 Rx Lactobacillus Acidophilus 1 each PO BID 02/14/20 02/14/20 History [Acidophilus] Allergies Allergy/AdvReac Type Severity Reaction Status Date / Time No Known Drug Allergies Allergy Verified 02/14/20 15:51 Medical - H&P: Exam - Constitutional Vitals: Temp Pulse Resp BP Pulse Ox 96.2 F L 48 L 11 L 94/75 94 02/14/20 15:51 02/14/20 20:16 02/14/20 20:16 02/14/20 20:16 02/14/20 20:16 Exam: General: Alert, Awake, No acute Distress Eyes/N/T: EOMI, PERRL, dryMM Head/Neck: neck supple, normocephalic atraumatic, (+)JVD CV: RRR, No murmurs, normal s1/s2 Pulm: mildly diminished right base, no wheezing/rhonchi/rales Abd: soft, nontender, +BS x4 Ext: no clubbing/cyanosis, 1+ b/l LE edema Neuro: Alert, no focal deficits, moves all extremities, CN 2-12 grossly intact, symmetrical strength b/l upper/lower, sensations intact b/l upper/lower Skin: warm/dry Medical - H&P: Reslt - Labs CBC & Chem 7: 02/14/20 16:20 02/14/20 16:20 Labs: Short CBC 02/14/20 Range/Units 16:20 WBC 13.1 H (4.50-11.00) K/mcL Hgb 14.5 (13.7-17.5) g/dL Hct 45.0 (40.1-51.0) % Plt Count 311 (140-440) K/mcL BMP 02/14/20 16:20 Sodium 134 Potassium 4.2 Chloride 101 Carbon Dioxide 20 L BUN 25 H Creatinine 1.4 H Glucose 142 H Calcium 8.8 Cardiac Enzymes 02/14/20 Range/Units 16:20 Troponin T < 0.01 (0-0.03) ng/ml Liver Function 02/14/20 Range/Units 16:20 Total Bilirubin 1.2 H (0.0-1.0) mg/dL AST 25 (0-37) U/l ALT 15 (0-40) U/l Alkaline Phosphatase 104 (39-117) U/L Albumin 3.9 (3.2-5.2) gm/dL Medical - H&P: A/P - Narrative A/P Narrative: A: *Afib RVR: -Patient not taking Xarelto because of cost, willing to do warfarin as he has been on that in the past *Acute on chronic systolic/diastolic heart failure *Acute on chronic hypoxic respiratory failure: 2/2 Above *h/o Right heart failure: *CAD with stents in September: Supposed to be on Plavix and Xarelto per soakers supervisor notes in September. *Medication noncompliance: Off of Xarelto lately because of cost, we will transition to warfarin *CKD III: *COPD (not on home oxygen): *HTN: *Tobacco abuse: *GERD: *DM: diet controlled * P: -rate control with lopressor -short-term bibap tonight -i/o's, weights -cont BB -hold ACEI and f/u renal fxn in AM, also for low-normal BP currently -cont Plavix/Statin -evaluate for microaspiration with ST -educate on importance of anticoagulation and to never stop taking unless directed by physician -SSI -pt/ot -ppx: lovenox-warfarin bridge/home ppi DNR
[2020-02-14 20:50] LABS: Appearance,Urine CLEAR; Bacteria,Urine 0 /hpf (0); Bilirubin,Urine NEG (NEG); Color,Urine AMBER; Culture Indicated,Urine NO; Glucose,Urine (UA) NEGATIVE (NEG); Ketones,Urine NEG (NEG); Leukocyte Esterase,Urine NEG /uL (NEG); Mucus,Urine MANY /hpf (0); Nitrate,Urine NEG (NEG); Protein,Urine 30 mg/dL (NEG); Specific Gravity,Urine 1.027 (1.000-1.035); Urine Blood NEG mg/dL (<0.03); Urine Hyaline Cast 12 /lpf (0-2); Urine RBC 2 /hpf (0-1); Urine Squamous Epithelial Cell 0 /hpf (0-4); Urine WBC 6 /hpf (0-4)
[2020-02-14] MEDS ORDERED: ONDANSETRON 4 MG/2 ML VIAL IV PRN (20:56)
[2020-02-14] MEDS ORDERED: IPRATROPIUM/ALBUTEROL 3 ML AMPUL.NEB NEB PRN (20:56)
[2020-02-14] MEDS ORDERED: POTASSIUM CHLORIDE 20 MEQ TABLET PO PRN ×2 (20:56)
[2020-02-14] MEDS ORDERED: ACETAMINOPHEN 325 MG TABLET PO PRN (20:56)
[2020-02-14] MEDS ORDERED: POLYETHYLENE GLYCOL 3350 17 GM PACKET PO PRN (20:56)
[2020-02-14] MEDS ORDERED: POTASSIUM CHLORIDE 40 MEQ in DEXTROSE 5% IN WATER 500 ML IV PRN (20:56)
[2020-02-14] MEDS ORDERED: NITROGLYCERIN 0.4 MG TAB.SUBL SL PRN (20:56)
[2020-02-14] MEDS ORDERED: METOPROLOL TARTRATE 25 MG TABLET PO ONE (20:56)
[2020-02-14] MEDS ORDERED: CYCLOBENZAPRINE 10 MG TABLET PO PRN (20:56)
[2020-02-14] MEDS ORDERED: SENNOSIDES 1 TABLET PO PRN (20:56)
[2020-02-14] MEDS ORDERED: MAGNESIUM SULFATE 2 GM/50 ML BAG IV PRN (20:56)
[2020-02-14] MEDS ORDERED: DEXTROSE 31 GM ORAL.SUSP PO PRN (20:59)
[2020-02-14] MEDS ORDERED: DEXTROSE 50% 50 ML VIAL IV PRN (20:59)
[2020-02-14] MEDS ORDERED: AMIODARONE 150 MG in DEXTROSE 5% IN WATER 50 ML IV ONE (21:02)
[2020-02-14] MEDS ORDERED: 0.9 % SODIUM CHLORIDE 250 ML IV SCH (21:15)
[2020-02-14] MEDS: METOPROLOL TARTRATE 5 MG/5 ML VIAL IV PRN (21:25)
[2020-02-14] MEDS: FAMOTIDINE 20 MG TABLET PO SCH (21:26)
[2020-02-14] MEDS: ENOXAPARIN 80 MG/0.8 ML SYRINGE SQ SCH (21:28)
[2020-02-14] MEDS: ATORVASTATIN 40 MG TABLET PO SCH (21:28)
[2020-02-14] MEDS: INSULIN LISPRO 1 UNIT/0.01 ML UNIT SQ SCH (21:35)
[2020-02-14] MEDS: 0.9 % SODIUM CHLORIDE 10 ML SYRINGE IV SCH (22:02)
[2020-02-15] MEDS: ESMOLOL 2,500 MG in PREMIX 1 BAG IV SCH ×2 (04:26→07:23)
[2020-02-15] MEDS: 0.9 % SODIUM CHLORIDE 10 ML SYRINGE IV SCH ×3 (05:20→21:00)
--- NOTE | 2020-02-15 06:43 | XRay Report ---
CLINICAL INFORMATION: f/u abnormal ekg COMPARISON: 02/14/2020 FINDINGS: Mild cardiomegaly is unchanged. Mediastinum is unremarkable. Pulmonary vessels decreased only slightly distended. There is minimal interstitial edema. Small right basilar infiltrate improved. Right diaphragm mildly elevated IMPRESSION: Mild CHF - mild improvement Small right basilar infiltrate improved Interpreted and Authenticated by: Niranjan Hilario 02/15/20
[2020-02-15 06:45] LABS: Hematocrit 45.5 % (40.1-51.0); Hemoglobin 14.2 g/dL (13.7-17.5); Mean Cell Volume 86.2 fL (80.0-100.0); Mean Corpuscular HGB Conc 31.2 g/dL (31.0-36.0); Mean Platelet Volume 10.8 fL (7.4-10.4); Platelet Count 305 K/mcL (140-440); RBC 5.28 M/mcL (4.63-6.08); Red Cell Distribution Width 13.6 % (11.5-14.5); WBC 12.2 K/mcL (4.50-11.00)
[2020-02-15] MEDS ORDERED: ESMOLOL 2,500 MG in PREMIX 1 BAG IV PRN (06:45)
[2020-02-15 07:06] LABS: ALT/SGPT 22 U/l (0-40); AST/SGOT 36 U/l (0-37); Albumin 3.7 gm/dL (3.2-5.2); Albumin/Globulin Ratio 1.3 (1.0-2.3); Alkaline Phosphatase 113 U/L (39-117); Bilirubin,Direct 0.5 mg/dL (0.0-0.3); Bilirubin,Total 1.5 mg/dL (0.0-1.0); Blood Urea Nitrogen 30 mg/dl (8-23); Calcium 8.9 mg/dl (8.6-10.4); Carbon Dioxide 18 mmol/L (22-30); Chloride 103 mmol/L (96-108); Globulin 2.9 gm/dL (2.2-3.7); Glomerular Filtration Rate 46; Glucose 135 mg/dL (70-105); Lactate Dehydrogenase 240 U/L (94-250); Phosphorous 4.2 mg/dL (2.7-4.5); Triglycerides 52 mg/dl (<150)
[2020-02-15] MEDS ORDERED: 0.9 % SODIUM CHLORIDE 500 ML IV ONE (07:25)
--- NOTE | 2020-02-15 07:35 | Internal Med Progress Note ---
Medical - PN: Subj Patient information: Note initiated : 02/15/20 at 7:26 am Service Date, if different from initiated Date: [] Patient: Romna Vega 74 y/o M admitted on 02/14/20 for sob. Chief Complaint: [] Interval history: Mr. Vega is a 74 year old M Presents to the ED with shortness of breath x2 days. Patient is a poor historian. It is noted in old notes that he has mild cognitive dysfunction. Patient has recently been discharged from the hospital for A. fib and CHF and at that time possible pneumonia. He denies cough or fever. Denies chest pain other than a brief episode of right achy pain on his right lateral ribs while he was being driven over here that lasted a few seconds. Troponin was unremarkable. proBNP was similar to admission several weeks ago. Renal function similar to discharge lab several weeks ago. Blood cell count mildly elevated. Was mildly elevated last admission at 11 and then bumped to 13 dropped to 10 on day of discharge. No bandemia noted. Again he is afebrile in the ED. CRP is minimally elevated at 1.3, procalcitonin is low. He did have a COVID testing several weeks ago which is negative. Chest x-ray is similar to last chest x-ray done last admission, which shows some prominence and pulmonary vasculature and appears to be some fluid in the horizo ntal fissure. Lactate 2.2. Also oximetry seem to be fine on room air but an ABG was done which showed him to be PaO2 of 59. Patient is primarily been admitted at [place]. He was recently there several times in September for an STEMI and had several RCA stents for in-stent stenosis of previous cardiac stents. Was also noted to have medication noncompliance during those hospitalizations as history was gathered. Patient now admits that he has been off Xarelto for a period of time and he could not give me any inclination of the timing. I do see note from his primary care provider on February 11 about him not be able to afford Xarelto. We may need to go warfarin, which he said he has been on in the past. He believes he has been taking all of his other medications as prescribed. In the ED he was found to have heart rate of 120-140. He is also supposed to follow-up with Dr. Henson rope maker for COPD. 02/14 Reports he slept off and on. No acute events overnight. Patient states his b reathing is little better. Speech therapy evaluation pending. Review of Systems: denies headache/fever/chills/nausea/vomiting/chest or abdominal pain/diarrhea. Otherwise see above. - Constitutional Vitals: Vital Signs Temp Pulse Resp BP Pulse Ox 98.9 F 98 H 16 83/73 93 02/15/20 06:25 02/15/20 04:23 02/15/20 06:25 02/15/20 06:25 02/15/20 06:25 Period Temp Pulse Resp BP Sys/Joel Pulse Ox Last 24 Hr 96.0 F-98.9 F 30-124 8-37 68-192/31-151 81-100 Intake and Output 02/14/20 02/15/20 02/15/20 21:59 05:59 13:59 Intake Total 240 480 Output Total 75 Balance 240 405 Weight 92.487 kg Intake & Output: Intake & Output 02/14/20 02/15/20 02/15/20 21:59 05:59 13:59 Intake Total 240 480 Output Total 75 Balance 240 405 Weight 92.487 kg Intake: Oral 240 480 Output: Void Amount 75 Other: Meal [place] Percent of Meal Consumed 100% Urine Appearance Clear Urine Color Dark [place] Exam: General: Alert, Awake, No acute Distress Eyes/N/T: EOMI, Head/Neck: neck supple, CV: RRR, No murmurs, Pulm: mildly diminished right base otherwise clear, no wheezing/rhonchi/rales Abd: soft, nontender, +BS x4 Ext: no clubbing/cyanosis, trace-1+ b/l LE edema Neuro: Alert, no focal deficits, moves all extremities, Skin: warm/dry Medical - PN: Obj Da - Labs CBC & Chem 7: 02/15/20 04:49 02/15/20 04:49 Labs: Abnormal Lab Results 02/15/20 02/15/20 02/15/20 04:49 04:49 04:49 WBC 12.2 H MPV 10.8 H Nucleated RBCs VBG Lactic Acid 2.4 H Carbon Dioxide 18 L BUN 30 H Creatinine 1.5 H Glucose 135 H Uric Acid 10.0 H Total Bilirubin 1.5 H Direct Bilirubin 0.5 H C-Reactive Protein NT-Pro-B Natriuret Pep Urine Protein Urine Urobilinogen Urine RBC Urine WBC Hyaline Casts Urine Mucus 02/14/20 02/14/20 02/14/20 19:40 16:20 16:20 WBC MPV Nucleated RBCs VBG Lactic Acid 2.2 H Carbon Dioxide BUN Creatinine Glucose Uric Acid Total Bilirubin Direct Bilirubin C-Reactive Protein 1.3 H NT-Pro-B Natriuret Pep Urine Protein 30 A Urine Urobilinogen 2.0 A Urine RBC 2 H Urine WBC 6 H Hyaline Casts 12 H Urine Mucus Many A 02/14/20 02/14/20 16:20 16:20 WBC 13.1 H MPV 10.8 H Nucleated RBCs 1 H VBG Lactic Acid Carbon Dioxide 20 L BUN 25 H Creatinine 1.4 H Glucose 142 H Uric Acid Total Bilirubin 1.2 H Direct Bilirubin C-Reactive Protein NT-Pro-B Natriuret Pep 6980.0 H Urine Protein Urine Urobilinogen Urine RBC Urine WBC Hyaline Casts Urine Mucus Meds: Medications Acetaminophen (Tylenol) 650 mg PO Q6HP PRN PRN Reason: PAIN/FEVER > 101 Last Admin: 02/14/20 21:49 Dose: 650 mg Documented by: Albuterol/Ipratropium (Duoneb) 3 ml NEB Q4HP PRN PRN Reason: Shortness Of Breath Atorvastatin Calcium (Lipitor) 80 mg PO [facility] Last Admin: 02/14/20 21:28 Dose: 80 mg Documented by: Clopidogrel Bisulfate (Plavix) 75 mg PO DAILY [facility] Cyclobenzaprine HCl (Flexeril) 10 mg PO TIDP PRN PRN Reason: Pain Dextrose (Dextrose 50%) 0 ml IV UD PRN PRN Reason: Hypoglycemia Diagnostic Test (Pha) (Accu-Chek) 1 each FS ACHS [facility] Last Admin: 02/15/20 07:06 Dose: 1 each Documented by: Enoxaparin Sodium (Lovenox) 80 mg SQ BID [facility] Last Admin: 02/14/20 21:28 Dose: 80 mg Documented by: Famotidine (Pepcid) 20 mg PO HS [facility] Last Admin: 02/14/20 21:26 Dose: 20 mg Documented by: Furosemide (Lasix) 20 mg PO DAILY [facility] Glucose (Insta-Glucose) 15 gm PO PRN PRN PRN Reason: Hypoglycemia Potassium Chloride 40 meq/ (Dextrose) 520 mls @ 130 mls/hr IV UD PRN PRN Reason: Potassium < 3 Magnesium Sulfate (Magnesium Sulfate) 2 gm in 50 mls @ 50 mls/hr IV UD PRN PRN Reason: Magnesium </= 1.6 Sodium Chloride (Sodium Chloride 0.9%) 250 mls @ 20 mls/hr IV .[id number] [facility] Last Admin: 02/15/20 04:26 Dose: Not Given Documented by: Esmolol HCl 2,500 mg/ Premix 250 mls @ 27.746 mls/hr IV .Q9H1M PRN; Protocol PRN Reason: TACHYCARDIA Sodium Chloride (Sodium Chloride 0.9%) 500 mls @ 84 mls/hr IV BOLUS ONE Stop: 02/15/20 13:22 Insulin Human Lispro (Humalog) 0 unit SQ ACHS [facility]; Protocol Last Admin: 02/14/20 21:35 Dose: Not Given Documented by: Metoprolol Succinate (Toprol Xl) 100 mg PO DAILY [facility] Metoprolol Tartrate (Lopressor) 5 mg IV Q2HP PRN PRN Reason: Tachyarrhythmias HR>110 Last Admin: 02/14/20 21:25 Dose: 5 mg Documented by: Nitroglycerin (Nitrostat) 0.4 mg SL Q5M PRN PRN Reason: Chest Pain Ondansetron HCl (Zofran) 4 mg IV Q4HP PRN PRN Reason: Nausea And Vomiting Last Admin: 02/14/20 21:43 Dose: 4 mg Documented by: Pneumococcal Polyvalent Vaccine (Pneumovax 23) 0.5 ml IM .ONCE ONE Stop: 02/15/20 10:01 Polyethylene Glycol (Miralax) 17 gm PO DAILYP PRN PRN Reason: Constipation Potassium Chloride (Kdur) 40 meq PO UD PRN PRN Reason: Potssium is 3-3.5 Potassium Chloride (Kdur) 40 meq PO UD PRN PRN Reason: Potassium < 3 Senna (Senokot) 2 tab PO DAILYP PRN PRN Reason: Constipation Sodium Chloride (Saline Flush) 10 ml IV Q8 [facility] Last Admin: 02/15/20 05:20 Dose: 10 ml Documented by: Tamsulosin HCl (Flomax) 0.4 mg PO DAILY [facility] Medical - PN: A/P - Time Spent With Patient Total time spent is greater than 50% in coordination of care (as documented) at patient's floor/unit and/or counseling patient: - Narrative A/P Narrative: A: *Afib RVR: -Patient not taking Xarelto because of cost, willing to do warfarin as he has been on that in the past *?Acute on chronic systolic/diastolic heart failure: although appears intravascularly dry -fluid status difficult to determine with mixed presentation *Acute on chronic hypoxic respiratory failure: 2/2 Above -now on 1L NC with sats mid 90's *h/o Right heart failure: *CAD with stents in September: Supposed to be on Plavix and Xarelto per glass unloading equipment tender notes in September. *Medication noncompliance: Off of Xarelto lately because of cost, we will transition to warfarin *CKD III: *COPD (not on home oxygen): *HTN: on toprol at home for afib, but low BP noted *Tobacco abuse: *GERD: *DM: diet controlled * P: -rate control with metoprolol -O2 supp prn -i/o's, weights -cont BB -hold lasix today, gentle IVF's day and f/u lactate -hold ACEI and f/u renal fxn in AM, also for low-normal BP currently -cont Plavix/Statin -evaluate for aspiration with ST -educate on importance of anticoagulation and to never stop taking unless directed by physician -SSI -pt/ot -Smoking cessation counseling -ppx: lovenox-warfarin bridge/home ppi DNR
[2020-02-15 07:42] LABS: INR 1.4 (0.9-1.1); Prothrombin Time 17.3 sec (11.9-14.5)
[2020-02-15] MEDS ORDERED: 0.9 % SODIUM CHLORIDE 250 ML IV SCH (07:45)
[2020-02-15 08:28] LABS: Eosinophils % (Manual) 1 % (0-7); Lymphocytes % 32 % (15-49); Monocytes % (Manual) 11 % (1-12); Platelet Estimate NORMAL (NORMAL); RBC Morphology NORMAL (NORMAL); Segmented Neutrophils % 56 % (38-78)
[2020-02-15] MEDS: INSULIN LISPRO 1 UNIT/0.01 ML UNIT SQ SCH ×4 (08:55→21:15)
[2020-02-15] MEDS: ENOXAPARIN 80 MG/0.8 ML SYRINGE SQ SCH ×2 (08:56→21:13)
[2020-02-15] MEDS: METOPROLOL SUCCINATE 50 MG TAB.XL.24H PO SCH (08:56)
[2020-02-15] MEDS: CLOPIDOGREL 75 MG TABLET PO SCH (08:56)
[2020-02-15] MEDS: TAMSULOSIN 0.4 MG CAPSULE PO SCH (08:56)
[2020-02-15] MEDS ORDERED: FUROSEMIDE 20 MG TABLET PO SCH (09:00)
[2020-02-15] MEDS ORDERED: PNEUMOCOCCAL 23-VAL P-SAC VAC 0.5 ML SYRINGE IM ONE (10:00)
[2020-02-15] MEDS: METOPROLOL TARTRATE 5 MG/5 ML VIAL IV PRN ×2 (11:30→19:09)
[2020-02-15] MEDS ORDERED: AMIODARONE 150 MG in DEXTROSE 5% IN WATER 50 ML IV ONE (19:55)
[2020-02-15] MEDS ORDERED: 0.9 % SODIUM CHLORIDE 250 ML IV ONE (20:01)
[2020-02-15] MEDS ORDERED: AMIODARONE 360 MG/200 ML BAG IV ONE (20:08)
[2020-02-15] MEDS ORDERED: AMIODARONE 150 MG/3 ML VIAL IV ONE (20:08)
[2020-02-15] MEDS ORDERED: HALOPERIDOL LACTATE 5 MG/ML VIAL ONE ×2 (20:53→22:19)
[2020-02-15] MEDS ORDERED: HALOPERIDOL LACTATE 5 MG/ML VIAL IV ONE ×2 (20:55→22:12)
[2020-02-15] MEDS ORDERED: MELATONIN 3 MG TABLET PO SCH (21:06)
[2020-02-15] MEDS: FAMOTIDINE 20 MG TABLET PO SCH (21:13)
[2020-02-15] MEDS: ATORVASTATIN 40 MG TABLET PO SCH (21:13)
[2020-02-15] MEDS ORDERED: NOREPINEPHRINE BITARTRATE 4 MG/4 ML VIAL IV ONE (21:21)
[2020-02-15] MEDS: NOREPINEPHRINE BITARTRATE 8 MG in 0.9 % SODIUM CHLORIDE 242 ML IV SCH (21:30)
[2020-02-16] MEDS: AMIODARONE 360 MG in PREMIX 1 BAG IV SCH ×3 (00:56→10:54)
[2020-02-16] MEDS: 0.9 % SODIUM CHLORIDE 10 ML SYRINGE IV SCH (04:45)
--- NOTE | 2020-02-16 07:22 | Internal Med Progress Note ---
Medical - PN: Subj Patient information: Note initiated : 02/16/20 at 7:13 am Service Date, if different from initiated Date: [] Patient: Roman Vega 74 y/o M admitted on 02/14/20 for sob. Chief Complaint: [] Interval history: Mr. Vega is a 74 year old M Presents to the ED with shortness of breath x2 days. Patient is a poor historian. It is noted in old notes that he has mild cognitive dysfunction. Patient has recently been discharged from the hospital for A. fib and CHF and at that time possible pneumonia. He denies cough or fever. Denies chest pain other than a brief episode of right achy pain on his right lateral ribs while he was being driven over here that lasted a few seconds. Troponin was unremarkable. proBNP was similar to admission several weeks ago. Renal function similar to discharge lab several weeks ago. Blood cell count mildly elevated. Was mildly elevated last admission at 11 and then bumped to 13 dropped to 10 on day of discharge. No bandemia noted. Again he is afebrile in the ED. CRP is minimally elevated at 1.3, procalcitonin is low. He did have a COVID testing several weeks ago which is negative. Chest x-ray is similar to last chest x-ray done last admission, which shows some prominence and pulmonary vasculature and appears to be some fluid in the horizo ntal fissure. Lactate 2.2. Also oximetry seem to be fine on room air but an ABG was done which showed him to be PaO2 of 59. Patient is primarily been admitted at [place]. He was recently there several times in September for an STEMI and had several RCA stents for in-stent stenosis of previous cardiac stents. Was also noted to have medication noncompliance during those hospitalizations as history was gathered. Patient now admits that he has been off Xarelto for a period of time and he could not give me any inclination of the timing. I do see note from his primary care provider on February 11 about him not be able to afford Xarelto. We may need to go warfarin, which he said he has been on in the past. He believes he has been taking all of his other medications as prescribed. In the ED he was found to have heart rate of 120-140. 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 02/14 Reports he slept off and on. No acute events overnight. Patient states his b reathing is little better. Speech therapy evaluation pending. pt states he drinks "a lot" of [place] de[place]". 02/15 Patient required vasopressor last night. Levophed turned off off this morning and have daytime shift. Even though off vasopressor this morning, Other markers worsening. Increased leukocytosis. Elevated creatinine and potassium. Elevated lactate. ABG pending. given bicarb/insulin/glucose. LR bolus. IV access poor and central line placed. transfer for higher level of care. pt groggy but answers simple questions. Review of Systems: denies headache/fever/chills/nausea/vomiting/chest or abdominal pain/diarrhea. Otherwise see above. - Constitutional Vitals: Vital Signs Temp Pulse Resp BP Pulse Ox 98.2 F 95 H 25 H 112/86 94 02/16/20 04:27 02/16/20 06:56 02/16/20 06:56 02/16/20 06:02 02/16/20 06:56 Period Temp Pulse Resp BP Sys/Joel Pulse Ox Last 24 Hr 96.8 F-98.4 F 95-125 0-44 53-236/16-220 74-100 Intake and Output 02/15/20 02/16/20 02/16/20 21:59 05:59 13:59 Intake Total 391 875 149 Output Total 100 350 Balance 291 525 149 Weight 94.892 kg Intake & Output: Intake & Output 02/15/20 02/16/20 02/16/20 21:59 05:59 13:59 Intake Total 391 875 149 Output Total 100 350 Balance 291 525 149 Weight 94.892 kg Intake: IV 391 395 149 Sodium Chloride 0.9% 250 ml @ 250 75 mls/hr IV BOLUS ONE Rx#: [id number] Sodium Chloride 0.9% 500 ml @ 391 84 mls/hr IV BOLUS ONE Rx#: [id number] Nexterone 360 mg In Premix 1 69 Bag @ 1 MG/MIN 33.333 mls/hr IV .Q6H [facility] Rx#:[id number] Levophed 8 mg In Sodium 76 149 Chloride 0.9% 242 ml @ 10 MCG/ MIN 18.75 mls/hr IV Q14H [facility] Rx #:[id number] Oral 240 GI Tube Flush 240 Output: Void Amount 100 350 Other: Meal [place] Percent of Meal Consumed 0% Feeding Ability Independent Urine Appearance Clear Clear Urine Color Light [place] Dark [place] Urine Odor Normal Normal Stool Size Moderate Moderate Stool Color Brown Brown Bright Red Blood Stool Consistency Dry and Hard Soft Formed Loose # Bowel Movements 1 Exam: General: Awake, No acute Distress Eyes/N/T: EOMI, Head/Neck: neck supple, CV: irreg irreg, No murmurs, Pulm: mildly diminished at bases but otherwise clear Abd: soft, nontender, +BS x4 Ext: no clubbing/cyanosis, trace-1+ b/l LE edema Neuro: groggy but awakens and answers simple questions, no focal deficits, moves all extremities, Skin: warm/dry Medical - PN: Obj Da - Labs CBC & Chem 7: 02/16/20 05:12 02/16/20 05:12 Labs: Abnormal Lab Results 02/15/20 02/15/20 02/15/20 04:49 04:49 04:49 WBC MPV Nucleated RBCs PT 17.3 H INR 1.4 H VBG Lactic Acid 2.4 H Carbon Dioxide 18 L BUN 30 H Creatinine 1.5 H Glucose 135 H Uric Acid 10.0 H Total Bilirubin 1.5 H Direct Bilirubin 0.5 H C-Reactive Protein NT-Pro-B Natriuret Pep Urine Protein Urine Urobilinogen Urine RBC Urine WBC Hyaline Casts Urine Mucus 02/15/20 02/14/20 02/14/20 04:49 19:40 16:20 WBC 12.2 H MPV 10.8 H Nucleated RBCs PT INR VBG Lactic Acid Carbon Dioxide BUN Creatinine Glucose Uric Acid Total Bilirubin Direct Bilirubin C-Reactive Protein 1.3 H NT-Pro-B Natriuret Pep Urine Protein 30 A Urine Urobilinogen 2.0 A Urine RBC 2 H Urine WBC 6 H Hyaline Casts 12 H Urine Mucus Many A 02/14/20 02/14/20 02/14/20 16:20 16:20 16:20 WBC 13.1 H MPV 10.8 H Nucleated RBCs 1 H PT INR VBG Lactic Acid 2.2 H Carbon Dioxide 20 L BUN 25 H Creatinine 1.4 H Glucose 142 H Uric Acid Total Bilirubin 1.2 H Direct Bilirubin C-Reactive Protein NT-Pro-B Natriuret Pep 6980.0 H Urine Protein Urine Urobilinogen Urine RBC Urine WBC Hyaline Casts Urine Mucus Meds: Medications Acetaminophen (Tylenol) 650 mg PO Q6HP PRN PRN Reason: PAIN/FEVER > 101 Last Admin: 02/14/20 21:49 Dose: 650 mg Documented by: Albuterol/Ipratropium (Duoneb) 3 ml NEB Q4HP PRN PRN Reason: Shortness Of Breath Atorvastatin Calcium (Lipitor) 80 mg PO HS [facility] Last Admin: 02/15/20 21:13 Dose: 80 mg Documented by: Clopidogrel Bisulfate (Plavix) 75 mg PO DAILY [facility] Last Admin: 02/15/20 08:56 Dose: 75 mg Documented by: Cyclobenzaprine HCl (Flexeril) 10 mg PO TIDP PRN PRN Reason: Pain Dextrose (Dextrose 50%) 0 ml IV UD PRN PRN Reason: Hypoglycemia Diagnostic Test (Pha) (Accu-Chek) 1 each FS [facility] Last Admin: 02/15/20 21:13 Dose: 1 each Documented by: Enoxaparin Sodium (Lovenox) 80 mg SQ BID [facility] Last Admin: 02/15/20 21:13 Dose: 80 mg Documented by: Famotidine (Pepcid) 20 mg PO HS [facility] Last Admin: 02/15/20 21:13 Dose: 20 mg Documented by: Glucose (Insta-Glucose) 15 gm PO PRN PRN PRN Reason: Hypoglycemia Potassium Chloride 40 meq/ (Dextrose) 520 mls @ 130 mls/hr IV UD PRN PRN Reason: Potassium < 3 Magnesium Sulfate (Magnesium Sulfate) 2 gm in 50 mls @ 50 mls/hr IV UD PRN PRN Reason: Magnesium </= 1.6 AMIODARONE 360 mg/ Premix 200 mls @ 33.333 mls/hr IV .Q6H [facility]; Protocol Last Titration: 02/16/20 05:59 Dose: 0.5 mg/min, 16.667 mls/hr Documented by: Norepinephrine Bitartrate 8 mg (/ Sodium Chloride) 250 mls @ 18.75 mls/hr IV Q14H [facility]; Protocol Last Titration: 02/16/20 06:34 Dose: 0 mcg/min, 0 mls/hr Documented by: Insulin Human Lispro (Humalog) 0 unit SQ ACHS [facility]; Protocol Last Admin: 02/15/20 21:15 Dose: 4 units Documented by: Melatonin (Melatonin 3mg Tablet) 3 mg PO QHS [facility] Last Admin: 02/15/20 21:23 Dose: 3 mg Documented by: Metoprolol Succinate (Toprol Xl) 100 mg PO DAILY [facility] Last Admin: 02/15/20 08:56 Dose: 100 mg Documented by: Metoprolol Tartrate (Lopressor) 5 mg IV Q2HP PRN PRN Reason: Tachyarrhythmias HR>110 Last Admin: 02/15/20 19:09 Dose: 5 mg Documented by: Nitroglycerin (Nitrostat) 0.4 mg SL Q5M PRN PRN Reason: Chest Pain Ondansetron HCl (Zofran) 4 mg IV Q4HP PRN PRN Reason: Nausea And Vomiting Last Admin: 02/14/20 21:43 Dose: 4 mg Documented by: Pneumococcal Polyvalent Vaccine (Pneumovax 23) 0.5 ml IM .ONCE ONE Stop: 02/16/20 10:01 Polyethylene Glycol (Miralax) 17 gm PO DAILYP PRN PRN Reason: Constipation Potassium Chloride (Kdur) 40 meq PO UD PRN PRN Reason: Potssium is 3-3.5 Potassium Chloride (Kdur) 40 meq PO UD PRN PRN Reason: Potassium < 3 Senna (Senokot) 2 tab PO DAILYP PRN PRN Reason: Constipation Sodium Chloride (Saline Flush) 10 ml IV Q8 [facility] Last Admin: 02/16/20 04:45 Dose: Not Given Documented by: Tamsulosin HCl (Flomax) 0.4 mg PO DAILY [facility] Last Admin: 02/15/20 08:56 Dose: 0.4 mg Documented by: Medical - PN: A/P - Time Spent With Patient Total time spent is greater than 50% in coordination of care (as documented) at patient's floor/unit and/or counseling patient: - Narrative A/P Narrative: A: *Afib RVR: -Patient not taking Xarelto because of cost, willing to do warfarin as he has been on that in the past -better controlled on amio gtt *?Acute on chronic systolic(35%)/diastolic(III) heart failure: although appeared intravascularly dry on admit -fluid status difficult to determine with mixed presentation -CXR clear on f/u *Acute on chronic hypoxic respiratory failure: 2/2 Above -1L NC with sats mid 90's, was put on bipap last night as tachypnea, -ABG high O2 on bipap *h/o Right heart failure: systolic fxn mod-sev depressed *Hypotension: pt commonly in the 90's in old notes and sometimes lower. likely 2/2 Left & Right heart failur -decreased last night and levophed started, stopped this morning -no ekg changes, similar to previous ekg, Trop wnl *Lactic acidosis: worsened *Hyperkalemia: no ekg changes, similar to previous ekg *CAD with stents in September: Supposed to be on Plavix and Xarelto per hand edger notes in September. *Medication noncompliance: Off of Xarelto lately because of cost, we will transition to warfarin *CKD III: *COPD (not on home oxygen): *HTN: on toprol 100mg & lisinopril 2.5mg at home, but BP on admit *Tobacco abuse: *GERD: *DM: diet controlled *Mild cognitive dysfxn: P: -Likely transfer to higher care faciliyt -bicarb, LR bolus, f/u lactate -ABG -cont amiodarone gtt -f/u potassium after treatment -O2 supp prn -ACEI held for renal fxn and hypotension -cont Plavix/Statin - -educate on importance of anticoagulation and to never stop taking unless directed by physician -SSI -pt/ot, ST -Smoking cessation counseling -ppx: warfarin per pharm/pepcid DNI
[2020-02-16] MEDS: INSULIN LISPRO 1 UNIT/0.01 ML UNIT SQ SCH ×2 (07:30→10:51)
[2020-02-16 07:36] LABS: Calcium 9.2 mg/dl (8.6-10.4); Chloride 98 mmol/L (96-108); Glucose 91 mg/dL (70-105)
[2020-02-16 07:38] LABS: INR 2.4 (0.9-1.1); Prothrombin Time 26.8 sec (11.9-14.5)
[2020-02-16 07:42] LABS: Blood Urea Nitrogen 44 mg/dl (8-23); Carbon Dioxide 11 mmol/L (22-30); Glomerular Filtration Rate 22
[2020-02-16 07:57] LABS: Basophils # (Auto) 0.04 K/mcL (0.00-0.30); Basophils % (Auto) 0.2 % (0.0-2.0); Eosinophils # (Auto) 0.05 K/mcL (0.00-0.70); Eosinophils % (Auto) 0.2 % (0.0-7.0); Granulocytes % (Auto) 84.8 % (38.0-78.0); Hematocrit 48.9 % (40.1-51.0); Hemoglobin 14.7 g/dL (13.7-17.5); Lymphocytes # (Auto) 1.49 K/mcL (1.50-4.80); Mean Cell Volume 90.7 fL (80.0-100.0); Mean Corpuscular HGB Conc 30.1 g/dL (31.0-36.0); Mean Platelet Volume 11.2 fL (7.4-10.4); Monocytes # (Auto) 1.65 K/mcL (0.10-0.90); Monocytes % (Auto) 7.8 % (1.0-12.0); Platelet Count 314 K/mcL (140-440); RBC 5.39 M/mcL (4.63-6.08); Red Cell Distribution Width 13.8 % (11.5-14.5); WBC 21.2 K/mcL (4.50-11.00)
[2020-02-16] MEDS ORDERED: VANCOMYCIN PER PHARMACY IV SCH (08:11)
[2020-02-16] MEDS ORDERED: LACTATED RINGERS 1,000 ML IV ONE (08:12)
[2020-02-16] MEDS ORDERED: SODIUM BICARBONATE 50 MEQ/50 ML VIAL IV ONE (08:12)
[2020-02-16] MEDS ORDERED: DEXTROSE 50% 50 ML VIAL IV PRN (08:14)
[2020-02-16] MEDS ORDERED: INSULIN REGULAR, HUMAN 1 UNIT/0.01 ML UNIT SQ ONE (08:14)
--- NOTE | 2020-02-16 08:24 | XRay Report ---
CLINICAL INFORMATION: f/u abnormal film COMPARISON: 02/15/2020 FINDINGS: Heart is moderately enlarged. Mediastinum is unremarkable. Pulmonary vessels are normal in today's study no edema. Small right basilar infiltrate has nearly cleared. Moderate elevation right diaphragm seen as before IMPRESSION: No evidence of CHF. There is near-complete clearance of small right basilar infiltrate. Interpreted and Authenticated by: Niranjan Hilario 02/16/20
[2020-02-16] MEDS ORDERED: VANCOMYCIN 1,500 MG in 0.9 % SODIUM CHLORIDE 500 ML IV SCH (09:00)
[2020-02-16] MEDS ORDERED: DEXMEDETOMIDINE 400 MCG in PREMIX 1 BAG IV SCH (09:15)
[2020-02-16] MEDS ORDERED: PNEUMOCOCCAL 23-VAL P-SAC VAC 0.5 ML SYRINGE IM ONE (10:00)
--- NOTE | 2020-02-16 10:16 | XRay Report ---
CLINICAL INFORMATION: central line placement COMPARISON: 02/16/2020 0755 hours FINDINGS: Mild cardiomegaly is unchanged. New right IJ central line tip overlies the SVC brachycephalic junction. The mediastinum and pulmonary vessels are normal. Minimal residual right basilar infiltrate noted.. No effusions. Right diaphragm mildly elevated IMPRESSION: Right IJ central line tip overlies the SVC right atrial junction. Minimal residual right basilar infiltrate Interpreted and Authenticated by: Niranjan Hilario 02/16/20
--- NOTE | 2020-02-16 10:31 | Procedure Note ---
Procedures - Central Line Placement Right IJ Date of Procedure: 02/16/20 Time out performed: Yes Patient placed on monitor/pulse ox: Yes MD prep: mask, sterile gown, sterile gloves, cap Central line prep: 2% Chlorhexidine scrub Ultrasound used for placement: Yes Central line lumen inserted: quad, 16 cm Post procedure: sutured in place, good blood return, all ports aspirated, flushed, capped, sterile dressing applied Post procedure x-ray: tip of catheter in good position Patient tolerated procedure: well Complications: none
[2020-02-16] MEDS: NOREPINEPHRINE BITARTRATE 8 MG in 0.9 % SODIUM CHLORIDE 242 ML IV SCH (10:40)
[2020-02-16] MEDS: TAMSULOSIN 0.4 MG CAPSULE PO SCH (10:47)
[2020-02-16] MEDS: METOPROLOL SUCCINATE 50 MG TAB.XL.24H PO SCH (10:47)
[2020-02-16] MEDS: CLOPIDOGREL 75 MG TABLET PO SCH (10:47)
[2020-02-16] MEDS: ENOXAPARIN 80 MG/0.8 ML SYRINGE SQ SCH (10:48)
[2020-02-16 11:13] LABS: Lymphocytes % 11 % (15-49); Monocytes % (Manual) 5 % (1-12); Platelet Estimate NORMAL (NORMAL); RBC Morphology NORMAL (NORMAL); Segmented Neutrophils % 84 % (38-78)
[2020-02-16 11:40] LABS: Albumin 3.3 gm/dL (3.2-5.2); Albumin/Globulin Ratio 1.7 (1.0-2.3); Alkaline Phosphatase 168 U/L (39-117); Bilirubin,Direct 1.3 mg/dL (0.0-0.3); Blood Urea Nitrogen 49 mg/dl (8-23); Calcium 8.4 mg/dl (8.6-10.4); Carbon Dioxide 13 mmol/L (22-30); Chloride 98 mmol/L (96-108); Globulin 1.9 gm/dL (2.2-3.7); Glomerular Filtration Rate 20; Glucose 90 mg/dL (70-105); Phosphorous 5.6 mg/dL (2.7-4.5); Triglycerides 55 mg/dl (<150); Uric Acid 12.2 mg/dL (2.5-8.0)
[2020-02-16 11:53] LABS: ALT/SGPT 3508 U/l (0-40); AST/SGOT 6516 U/l (0-37)
[2020-02-16] MEDS ORDERED: PIPERACILLIN SODIUM/TAZOBACTAM 2.25 GM in DEXTROSE 5% IN WATER 50 ML IV SCH (12:00)
[2020-02-16] MEDS ORDERED: morphine 4 MG/ML VIAL IV PRN (12:02)
[2020-02-16] MEDS ORDERED: LACTOPEROXI/GLUC OXID/POT THIO 1 EACH GEL..EA. TOPICAL PRN (12:02)
[2020-02-16] MEDS ORDERED: morphine 4 MG/ML VIAL NEB PRN (12:02)
[2020-02-16] MEDS ORDERED: LORazepam 2 MG/ML VIAL IV PRN (12:02)
[2020-02-16 12:31] LABS: Lactate Dehydrogenase 9630 U/L (94-250)
--- NOTE | 2020-02-16 13:06 | Death Note ---
Discharge Sum: Prov - Provider Patient information: Note initiated : 02/16/20 at 1:02 pm Service Date, if different from initiated Date: [] Patient: Roman Vega 74 y/o M admitted on 02/14/20 for sob. Chief Complaint: [] Primary care physician: SANIYA Chavarria Consults: 02/14/20 Consult to Physician [CONS] Stat Comment: Consulting Provider: Darryl Salas Reason For Exam: Physician to Consult Discharge Sum: Summary - Date and Time Date of admission: 02/14/20 20:52 Date of : 02/16/20 Time of : 12:50 - Summary Details: Mr. Vega is a 74 year old M Presents to the ED with shortness of breath x2 days. Patient is a poor historian. It is noted in old notes that he has mild cognitive dysfunction. Patient has recently been discharged from the hospital for A. fib and CHF and at that time possible pneumonia. He denies cough or fever. Denies chest pain other than a brief episode of right achy pain on his right lateral ribs while he was being driven over here that lasted a few seconds. Troponin was unremarkable. proBNP was similar to admission several weeks ago. Renal function similar to discharge lab several weeks ago. Blood cell count mildly elevated. Was mildly elevated last admission at 11 and then bumped to 13 dropped to 10 on day of discharge. No bandemia noted. Again he is afebrile in the ED. CRP is minimally elevated at 1.3, procalcitonin is low. He did have a COVID testing several weeks ago which is negative. Chest x-ray is similar to last chest x-ray done last admission, which shows some prominence and pulmonary vasculature and appears to be some fluid in the horizontal fissure. Lactate 2.2. Also oximetry seem to be fine on room air but an ABG was done which showed him to be PaO2 of 59. Patient is primarily been admitted at [facility]. He was recently there several times in September for an STEMI and had several RCA stents for in-stent stenosis of previous cardiac stents. Was also noted to have medication noncompliance during those hospitalizations as history was gathered. Patient now admits that he has been off Xarelto for a period of time and he could not give me any inclination of the timing. I do see note from his primary care provider on February 11 about him not be able to afford Xarelto. We may need to go warfarin, which he said he has been on in the past. He believes he has been taking all of his other medications as prescribed. In the ED he was found to have heart rate of 120-140. He is also supposed to follow-up with Dr. Henson handy worker for COPD. 02/14 Reports he slept off and on. No acute events overnight. Patient states his breathing is little better. Speech therapy evaluation pending. pt states he drinks "a lot" of mountain dew". 02/15 Patient required vasopressor last night. Levophed turned off off this morning and have daytime shift. Even though off vasopressor this morning, Other markers worsening. Increased leukocytosis. Elevated creatinine and potassium. Elevated lactate. ABG pending. given bicarb/insulin/glucose. LR bolus. IV access poor and central line placed. transfer for higher level of care. Broad antibiotic started this morning. No obvious source of infection but starting empirically given his deteriorating course. pt groggy but answers simple questions. Patient not responding to therapy and lactate increasing despite pressors and bolusing fluids. Heart rate started bradying down. Subsequently started dropping blood pressure. When I discussed CODE STATUS with him in the ER he was a DO NOT RESUSCITATE. However when he went to the floor he signed a form with the nursing okay for CPR but DO NOT INTUBATE. Just went over the patient's status with his and explained to him regarding CODE STATUS and what he told me before. Given his current state of health and significant comorbidities, lack of response to treatment; the likelihood of recovering from a cardiopulmonary Arrest would be low and the state of his health thereafter would be significantly worsened with unknown of how he would do with recovery. After this discussion with Kym, his CODE STATUS was changed from a limited to a DO NOT RESUSCITATE. Levophed maxed and still unable to get any reasonable blood pressure. appears eminent. I just had another phone conversation with Kym regarding his status she felt we should focus on comfort at this time. I discussed comfort care only measures. We will transition him to comfort care only at this time. Patient at 1250 hours, family being notified A: *Afib RVR: -Patient not taking Xarelto because of cost, willing to do warfarin as he has been on that in the past -better controlled on amio gtt *?Acute on chronic systolic(35%)/diastolic(III) heart failure: although appeared intravascularly dry on admit -fluid status difficult to determine with mixed presentation -CXR clear on f/u *Acute on chronic hypoxic respiratory failure: 2/2 Above -1L NC with sats mid 90's, was put on bipap last night for tachypnea -ABG high O2 on bipap *h/o Right heart failure: systolic fxn mod-sev depressed *Hypotension: pt commonly in the 90's in old notes and sometimes lower. likely 2/2 Left & Right heart failure -decreased last night and levophed started, stopped this morning -no ekg changes, similar to previous ekg, Trop wnl *Lactic acidosis: worsened *Hyperkalemia: no ekg changes, similar to previous ekg, resolved on f/u with treatment *CAD with stents in September: Supposed to be on Plavix and Xarelto per cook syrup maker notes in September. has been of xaralto for cost -See [facility] hospitalization in september x2 regarding NSTEMI with stents and medication noncompliance *Medication noncompliance: Off of Xarelto lately because of cost, we will transition to warfarin *CKD III: *COPD (not on home oxygen): *HTN: on toprol 100mg & lisinopril 2.5mg at home, but BP on admit low *Tobacco abuse: *GERD: *DM: diet controlled *Mild cognitive dysfxn: - Additional Data Attending physician: Darryl Salas
[2020-02-16] MEDS ORDERED: 0.9 % SODIUM CHLORIDE 10 ML SYRINGE IV SCH (14:00)
== END 2020-02-16 23:45 | disposition expired | DRG 308 ==
LOC: ED 15:51 → ICU 20:50
PROVIDERS: ADMIT Internal Medicine; ATTEND Internal Medicine